=== PATIENT | female | born 1940 | race Caucasian/White ===

== ENCOUNTER 2018-06-19 06:08 | Inpatient (IN) | payer MEDICARE, OTHER, SELFPAY ==
[2018-06-05 10:28] VITALS: BMI 26.2
[2018-06-19] VITALS (15 sets, daily range): BP systolic 108–146; BP diastolic 50–72; PULSE 90–110; RESP 10–21; TEMP 35.8–36.7; O2SAT 94–99; BMI 26.2
--- NOTE | 2018-06-19 | DI.RAD.S_ITS ---
PROCEDURE: XR LUMBAR SPINE 2-3V INDICATIONS: L4-5, L5-S1 XLIF TECHNIQUE: 2 intraoperative fluoroscopic views of the lumbar spine were acquired. COMPARISON: None. FINDINGS: Intraoperative fluoroscopic images of lower lumbar spine shows transpedicular fusion at L4-S1 levels with intervertebral spacer placement at L4-5 and L5-S1 levels. Alignment of visualized portion of lumbar spine is anatomic. IMPRESSION: Fluoroscopy guidance was provided intraoperatively for transpedicular fusion at L4-S1 levels. Dictated by: Eliezer Hernandez M.D. on 06/19/2018 at 12:09 Approved by: Eliezer Hernandez M.D. on 06/19/2018 at 12:10
[2018-06-19] MEDS: LACTATED RINGERS 1,000 ML 42 ML IV (06:45)
--- NOTE | 2018-06-19 07:14 | PM.PREOP ---
Pre-operative Note Interval Note History & Physical reviewed/Exam performed by Physician: Yes Changes to H&P: No
--- NOTE | 2018-06-19 07:43 | P.OP_ITS ---
Operative Date/Time/Diagnoses Date of procedure: 06/19/18 Time of procedure: 11:24 Pre-op diagnosis: lumbar stenosis with radiculopathy Lumbar spondylolisthesis Post-op diagnosis: same Procedure & Clinicians Procedure: L45, L5S1 TLIF (post/post interbody fusion) with cages L4, L5, S1 screws icbg aspirate L45, L5S1 laminectomies microscope placement of epidural catheter Same procedure as scheduled: Yes Indications: [age] year old female with intractable pain from stenosis. They had failed conservative management and requested operative intervention. Risks and benefits of surgery were discussed and appropriate consents were obtained. Surgeon: Pan Napoles Galley Worker: Gail Lopez Anesthesia Type: General Operative Notes Findings: none Closure Type: primary Specimen(s): none sent Prosthetic devices, grafts, tissues, transplants, or devices: NuVasive MAS Reline screws Globus Rise cage Applied: catheter Estimated Blood Loss (mL): 50 Blood products transfused: none Procedure in detail: The patient was brought to the operating room and intubated on the table. A time-out was performed. They were then rolled over to the well- padded Jimmy table in the prone position. Preoperative antibiotics were given. The back was prepped and draped in the standard sterile fashion. Using fluoroscopy, a 4 cm longitudinal incision was made to the right of the midline. We used Bovie to come down to and split the lumbodorsal fascia. Using fluoroscopy and monitoring, we then percutaneously placed Jamshidi needles down the pedicles of L4, L5, and S1 on the right side. These were changed out to guidewires and then we tapped and then placed the NuVasive MAS Reline screw shanks. We then opened up the retractors and used Bovie to clear up the posterolateral gutter as well as medially along the lamina to the spinous processes. A bur was used to decorticate the transverse processes. We brought in the microscope. Using a combination of bur and Kerrison rongeurs, a laminectomy was performed from the right side at L5-S1. We cleared over past the midline and carefully depressed the dura until we were able to decompress the opposite side. We cleared out the neural foramen with a partial facetectomy. This completed the laminectomy at L5-S1. We then began the TLIF prep. A complete facetectomy was performed on this side at L5-S1. We carefully cleaned up the remainder of the foramen until we could easily retract the exiting root as well as clearing medially below the dura and expose the disc space. The disc was prepped with bipolar and then an annulotomy was performed. We performed a diskectomy using a combination of paddles, layla, pituitaries, and curettes. We distracted the disc using a paddle and locked the retractor in an open position. We then filled the disc space with Osteocell bone graft. We then placed the globus Rise cage under fluoroscopy and then filled this in with more bone graft. The distraction on the retractor was released to compress down. This completed the posterior interbody fusion portion of the TLIF at L5-S1. We then worked our way up to L4-5. We again cleared out the gutter and decorticated the transverse process. We cleared medially. We used combination of bur and Kerrisons to perform a complete laminectomy at L4-5. The this was separate and distinct from a TLIF approach as she had severe central stenosis at this level requiring careful work around the dura and extensive decompression. We then began the interbody work. A facetectomy was performed. We carefully retracted the dura and prepped the disc with bipolar. Complete diskectomy was performed with scalpel, pituitaries, Kerrisons, curettes, paddles, and Layla. We packed the disc space with bone graft and then placed a globus Rise cage and expanded under fluoroscopy. More bone graft was placed. This completed the posterior interbody portion of the L4-5 TLIF. We then placed the screw heads, sim, and locked down the set screws. The wound was copiously irrigated. A small stab incision was made over the PSIS. We used a Jamshidi needle to aspirate several mL of bone marrow from the pelvis. This was mixed with the remaining Osteocell and combined with all of the locally harvested bone graft and placed in the posterolateral gutter for the posterior fusion of the TLIF at L4-5 and L5-S1. An epidural catheter was then placed in the spinal canal by carefully depressing the dura and advancing it 6 cm cephalad under the remaining lamina without resistance. The muscle fascia was closed. The catheter was then injected with a solution containing 4 mL of 0.5% Marcaine, 1 mg Stadol, 4 mg Duramorph, and 100 mcg of fentanyl. This was injected without resistance and the catheter was pulled. We then went to the opposite side. Again using fluoroscopy, a 3 cm incision was made and Bovie was used to come down to split the fascia. Using neural monitoring and fluoroscopy, Jamshidi needles were advanced down the pedicles of L4, L5, and S1 on the left side. These were switched over guidewires, tapped, and screws placed. We then placed a sim and locked the set screws on this side. The wound was irrigated. The fascia was closed. Vancomycin powder was placed in the wounds. The superficial and skin were closed. A sterile dressing was placed. The patient was then rolled over extubated and brought to recovery room without complications. Complications: none Condition: stable Disposition: PACU Plan for aftercare: Inpatient. Up with therapy.
[2018-06-19] MEDS: CEFAZOLIN 2 GM/100 ML FROZ.PIGGY IV ×2 (07:50→19:13)
--- NOTE | 2018-06-19 08:35 | SUR.OPER ---
Prone on spine table, head in foam head support, padded chest and pelvic supports, gel pad at knees, lower legs supported by pillows; nipples, genitalia and toes free of pressure, arms secured on foam padded arm boards at <90 degrees abduction. Tape over blanket at thigh secured to table.
[2018-06-19] MEDS: VANCOMYCIN 1,000 MG VIAL 1000 MG TOP (08:54)
[2018-06-19] MEDS: THROMBIN (BOVINE) 5,000 UNIT VIAL 5000 UNIT TOP (08:54)
[2018-06-19] MEDS: SODIUM CHLORIDE 0.9% 1,000 ML, GENTAMICIN 80 MG IRR (09:02)
[2018-06-19] MEDS: LACTATED RINGERS 1,000 ML 100 ML IV (09:06)
[2018-06-19] MEDS: BUPIVACAINE 0.5% (PF) 4 ML, MORPHINE-PF 4 MG, BUTORPHANOL 1 MG, fentaNYL 100 MCG INJ (10:59)
[2018-06-19] MEDS: HYDROMORPHONE 2 MG INJ 0.25 MG IV ×4 (11:58→12:20)
[2018-06-19] MEDS: hydrOXYzine 50 MG/ML INJ 25 MG IM (12:15)
--- NOTE | 2018-06-19 12:23 | SUR.PHASEI ---
Report to Melly
--- NOTE | 2018-06-19 12:34 | SUR.PHASEI ---
assumed care of pt, pt rates pain 9/10 despite meds given. eyes are closed, face relaxed and pt able to rest between care.
--- NOTE | 2018-06-19 13:03 | SUR.PHASEI ---
pt transfered up to room and left in stable condition.
[2018-06-19] MEDS: HYDROMORPHONE 1 MG INJ 0.5 MG IV (14:51)
[2018-06-19] MEDS: LACTATED RINGERS 1,000 ML 125 ML IV ×2 (14:51→21:59)
--- NOTE | 2018-06-19 15:24 | PC.NURSE ---
Day Shift- Report rec'd from AMCHO Pickard in PACU at 1238. Pt arrived to unit room 206 at 1255 via bed. Repositioned onto left side using KOMAL bed tilt and pillow support. Lower back dressing intact with small bloody drainage to Steri-strips. HR 107bpm, O2 sat 96% on 2L NC, on continuous O2 monitoring. Pt drowsy, able to answer questions and closes eyes when responding. Family at bedside and oriented to call light and post op routines. High fall risk precautions in place, bed alarm on.
[2018-06-19] MEDS: HYDROCODONE/ACET 5/325 TABLET 2 TAB PO (19:12)
[2018-06-19] MEDS: FISH OIL 1,000 MG CAPSULE 1000 MG PO (19:14)
[2018-06-19] MEDS: CELECOXIB 200 MG CAPSULE PO (19:14)
[2018-06-19] MEDS: GABAPENTIN 300 MG CAPSULE PO (19:15)
[2018-06-19] MEDS: DOCUSATE 100 MG CAPSULE PO (19:15)
[2018-06-19] MEDS: SENNOSIDES 8.6 MG TABLET 17.2 MG PO (19:15)
--- NOTE | 2018-06-19 21:26 | PC.NURSE ---
josselin shift- assumed care of pt from outgoing shift at 1500 this day. Pt asleep at this time. arouses to voice. in room , also asleep at bedside. Pt uses call hunt. scd zeferino feet on. pt calls appropriately. Pt belongings and call light within reach. pt up and cooperative with josselin med pass. pt complains of pain. hadn't had pain meds for a while. given per MAY. and ice packs applied. repositioned multiple times to side lying. will continue to monitor pt for safety.
[2018-06-20] VITALS (8 sets, daily range): BP systolic 102–134; BP diastolic 38–62; PULSE 68–88; RESP 16–18; TEMP 36.6–37; O2SAT 93–100
[2018-06-20] MEDS: CEFAZOLIN 2 GM/100 ML FROZ.PIGGY IV (01:34)
--- NOTE | 2018-06-20 02:56 | PC.NURSE ---
Addendum entered by Shanika Beltran R.N. 06/20/18 06:00: Slept most of night. Continues to deny having pain. Spouse present in room entire shift. Original Note: 0145 Patient assessed; has been asleep since start of shift. Patient is alert and oriented. Breath sounds diminished but CTA with RA sat of 97%. HRR. Denies nausea. BT hypoactive; denies flatus. Indwelling catheter is patent with clear keaton urine. Dressing to back is CDI; steri strips to right lower edge of dressing with sanguinous drainage. Denies pain. Able to turn self in bed. Has not yet been out of bed since return from surgery. Wearing bilateral foot SCD's. CMS is intact. Fall risk score is moderate; bed alarm is activated.
[2018-06-20 06:27] LABS: Hemoglobin 10.8 g/dL (12.0-16.0)
[2018-06-20] MEDS: LACTATED RINGERS 1,000 ML 125 ML IV (06:30)
--- NOTE | 2018-06-20 07:51 | PM.PNPO.1 ---
Subjective Date Patient Seen: 06/20/18 Time Patient Seen: 07:51 Interval history: She is doing very well. She has some ache in her back but that is it. Exam Vital Signs (past 8 hours): - 06/20/18 01:35 06/20/18 06:09 Temperature 98.6 F 97.9 F Pulse Rate 87 82 Respiratory Rate 16 16 Blood Pressure 109/43 L 102/38 L Pulse Oximetry 97 100 Oxygen Delivery Method Room Air Oxygen Flow Rate 0 Const Orientation: alert and oriented x3 Back/Spine/Pelvis Other: Minimal dry drainage. 5/5 motor both lower extremities Objective Labs Result Diagrams: 06/20/18 05:57 Labs: Laboratory Results - last 24 hr 06/20/18 05:57 Hgb 10.8 L Hct 32.0 L Assessment & Plan Post-op Postoperative Procedures Operation Date: 06/19/18 07:45 Actual Procedures Side Surgeon p L4-5, L5S1 Laminectomy & Instrument Posterior fusion with bone graft Pan Napoles MD She is doing great. Mobilize with physical therapy. Anticipate discharge in the next 1-2 days. Quality VTE Deep Vein Thrombosis/Pulmonary Embolism Present on Admission: No
--- NOTE | 2018-06-20 10:40 | PC.NURSE ---
Addendum entered by Alycia Alejandre R.N. 06/20/18 14:45: Henley given for pain control. Up walking in morrow with PT. Original Note: Am shift Pt is up with Pt, feeling well. Pain has been well controlled so far. Moving all ext well. Family into visit, Pt expresses desire to d/c home as soon as able. Lungs clear, 99% RA, no nausea. IVF infusing. Call light in reach.
[2018-06-20] MEDS: ASCORBIC ACID 500 MG TABLET PO (10:43)
[2018-06-20] MEDS: AMLODIPINE 5 MG TABLET PO (10:43)
[2018-06-20] MEDS: ASPIRIN EC 81 MG TABLET PO (10:44)
[2018-06-20] MEDS: CHOLECALCIFEROL (VITAMIN D3) 5,000 UNIT TABLET 5000 UNIT PO (10:44)
[2018-06-20] MEDS: FISH OIL 1,000 MG CAPSULE 1000 MG PO ×3 (10:45→21:40)
[2018-06-20] MEDS: HYDROCODONE/ACET 5/325 TABLET 1 TAB PO ×3 (10:45→18:59)
[2018-06-20] MEDS: CELECOXIB 200 MG CAPSULE PO ×2 (10:45→21:41)
[2018-06-20] MEDS: DOCUSATE 100 MG CAPSULE PO ×2 (10:45→21:40)
[2018-06-20] MEDS: TRIAMTERENE/HCTZ 37.5/25 TABLET 1 CAP PO (10:46)
--- NOTE | 2018-06-20 11:24 | PT.IIE ---
Current Diagnoses Spondylolisthesis, lumbar region (06/19/18) Spinal stenosis, lumbar region with neurogenic claudication (06/19/18) Surgery Performed Operation Date: 06/19/18 07:45 Actual Procedures p L4-5, L5S1 Laminectomy & Instrument Posterior fusion with bone graft - Pan Napoles MD Surgical History (Last Updated 06/05/18 @ 10:47 by Keesha Dhillon RN) History of bilateral carpal tunnel release (Acute) Hx of arthroscopy of right knee (Acute) Hx of cholecystectomy (Acute 04/11/18) Hx of dilation and curettage (Acute) Hx of tonsillectomy (Acute) Status post bilateral cataract extraction (Acute) Hx of appendectomy (Resolved 1974) Status post delivery (1968) Medical History (Last Updated 06/05/18 @ 10:47 by Keesha Dhillon RN) Eustachian tube dysfunction (Chronic) Essential hypertension (Chronic 04/01/16) Pure hypercholesterolemia (Chronic 04/01/16) Rheumatoid arthritis (Chronic 04/11/16) Chronic obstructive pulmonary disease (Chronic 05/20/16) Restrictive lung disease (Chronic 04/05/17) Anxiety (Acute) Back pain (Acute) Bowel obstruction (Acute) Numbness and tingling (Acute) Pneumonia (Acute ~06/2017) Sciatica (Acute) Osteopenia (Acute) Colon obstruction (Resolved 1974) Physical Therapy Inpatient Evaluation/Re-Eval M1 PT/OT-IP Prior Functional Status Start: 06/20/18 11:04 Freq: NEEDED Status: Active Protocol: Document 06/20/18 10:15 (Rec: 06/20/18 11:24 [email or web address]) Medical Review Prior Functional Status Medical History Reviewed Yes Diet/Fluid Consistency Regular Communication No deficits noted. Able to make needs known. Mobility and Gait Pt was an independent ambulator at home and community without using AD. Able to do gardening, grocery shop independently. Pt said she uses shower chair for bathing. Activities of Daily Living and IADL's Pt was independent with ADLs and IADLs without AD. Social History Household Members spouse children Living Arrangements House Number of Floors (Floors) Two Floors Number of Stairs To Enter/Railing? 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 Pt's bedroom and bathroom are both on second floor. Pt has 4 children and 27 grand kids that live close by. One of pt's dtr will stay with pt temporarily to assist as needed. Pt's is independent for ADLs and IADLs but does have difficulty getting up from low chair. M2 PT-IP Current Condition Start: 06/20/18 11:04 Freq: NEEDED Status: Active Protocol: Document 06/20/18 10:15 HH (Rec: 06/20/18 11:24 [email or web address]) Physical Therapy Current Condition Current Condition Evaluation Date 06/20/18 Treatment Diagnosis L4-S1 TLIF, impaired gait and activity tolerance Onset Date 06/19/18 Precautions Lumbar Precautions Log Roll No Twisting Limit Bending Lifting Restriction of 10 lbs Gait Belt above Incisional Area Weight Bearing Status Weight Bearing Status Weight Bear as Tolerated M3 PT-IP Subjective Start: 06/20/18 11:04 Freq: NEEDED Status: Active Protocol: Document 06/20/18 10:15 HH (Rec: 06/20/18 11:24 [email or web address]) Subjective Physical Therapy Visit Type Type Initial Evaluation Visit Start Time 10:15 Visit Stop Time 10:45 Total Visit Minutes 30 Notes Pt's , dtrs and grand kids at bedside. Number of CLINICAL TRIAL MANAGER Visits 0 Physical Therapy Visit Comments Patient Comments I only feel a little bit sore at my back only. Patient Goals To return home with her Therapy Pain Assessment Pain When Pain Assessed During Mobility Pain Present Pain Present Pain Reported Location Back Intensity 3 Scale Used Numeric (1 - 10) Description Acute Pain Behaviors Facial Grimacing Pain Management Techniques Modification of Treatment Re-positioning Timing of Activity with Medications M4 PT-IP Mobility and Gait Start: 06/20/18 11:04 Freq: NEEDED Status: Active Protocol: Document 06/20/18 10:15 HH (Rec: 06/20/18 11:24 [email or web address]) PT-Bed Mobility Assessment Rolling Type of Rolling Roll to Left Level of Assist Contact Guard Assistance Supine to Sit Supine to Sit Contact Guard Assistance Scooting Scooting to Edge of Bed Standby Assistance PT-Transfer Assessment Sit to and From Stand Sit to and from Stand Minimal Assistance Use of Upper Extremities Equipment Transfer Assistive Device Gait Belt Front Wheeled Walker Orthotic/Prosthetic Devices or Brace: No Transfers Transfer Destination Bed Chair Transfer Technique Stand Step Pivot Transfer Ability Level of Assist Contact Guard Assistance Minimal Assistance Use of Upper Extremities Comments Mobility Comments Pt was in bed upon assessment. Instructed pt's precautions and log roll method. Pt then log roll to left and used side push up to sit up EOB with CGA. she then stood up with min A FWW. Needed cues to keep her feet underneath her knees . She was also able to transfer herself to bedside chair with proper hand placements on armrests. Gait Assessment Gait Gait Assistance Required: Contact Guard Assist Distance (Feet) 80 Able to Maintain Weight Bearing Status Yes During Gait Assistive Devices Assistive Device Gait Belt Front Wheeled Walker Orthotic/Prosthetic Devices or Brace: No Gait Deviations General Gait Pattern Decreased Stride Length Decreased Feet Clearance Step-to Gait Factors Limiting Gait Function Factors Limiting Gait Function Decreased Activity Tolerance Decreased Sensation Decreased Strength Limited Range of Motion Pain Comments Gait Comments Pt up and amb in the hallway with FWW CGA. Pt used step to gait and decreased feet clearance and stride length. Required cues to facilitate upright position. Pt reports fatigue afterwards. Stair Climbing Assessment Evaluation Level of Assist On Stairs Contact Guard Assistance Devices Stair Climbing Assistive Devices Left Railing Right Railing Technique/Endurance Stair Climbing Direction Ascend and Descend Stair Climbing Technique Step to Step Number of Steps Climbed 3 Query Text: Stair Climbing Set # Repetitions (reps) 1 Comments Stair Climbing Comments slow but steady. PT-Balance Assessment Sitting Balance and Reactions Static Sitting Balance Ability Normal Dynamic Sitting Balance Ability Normal Standing Balance and Reactions Static Standing Balance Ability Good Dynamic Standing Balance Ability Good Device Used FWW M5 PT-IP Objective Assessments Start: 06/20/18 11:04 Freq: NEEDED Status: Active Protocol: Document 06/20/18 10:15 (Rec: 06/20/18 11:24 [email or web address]) Orientation Orientation/Cognition Level of Alertness Alert Orientation Name Age Birthday Month Date Year Day of Week Place Situation Language Function Ability No Deficits Noted Safety Awareness Understands Safety Issues Memory Description No Deficits Noted Gross Range of Motion Upper Extremity ROM Assessment Within Functional Limits Lower Extremity ROM Assessment Within Functional Limits Strength Upper Extremity Strength Assessment Within Functional Limits Lower Extremity Strength Assessment Bilaterally Impaired Comments Strength Comments B LEs strength 4-/5 Coordination Assessment Gross Coordination Gross Coordination WNL Assessment Finger to Nose Test Normal Performance Pronation/Supination Test Normal Performance Sensation Assessment Sensation Gross Sensation WNL Light Touch Intact Proprioception (Position) Intact Muscle Tone Muscle Tone WNL Yes M6 PT-IP Treatment Start: 06/20/18 11:04 Freq: NEEDED Status: Active Protocol: Document 06/20/18 10:15 HH (Rec: 06/20/18 11:24 HH [email or web address]) Physical Therapy Treatment Education Education Provided Precautions Weight Bearing Status Post-Op Packet Safety M7 PT-IP Assessment and Plan Start: 06/20/18 11:04 Freq: NEEDED Status: Active Protocol: Document 06/20/18 10:15 HH (Rec: 06/20/18 11:24 HH [email or web address]) PT Summary Assessment and Plan Potential Rehabilitation Potential Excellent Status of Condition at Evaluation Stable Summary Impairments Pain ROM Strength Balance Bed Mobility Transfers Gait Activity Tolerance Assessment Summary Pt is low complexity POD #2 L4 -S1 TLIF due to chronic back pain. Pt was up and ambulating for approx 80 feet FWW CGA but considerably slow due to pain and movement restrictions . Pt was able to recall 3/3 precautions and safely demonstrate log roll supine to sit with CGA. Pt did 3 steps with B railings CGA as well. However, pt has 3STE the house with L railing ,and 6-7 steps to second level with L railing. Pt is expected to d/c home once she is medically stable but she is required to clear stair training in hospital prior to d/c home safely. Goals Bed Mobility Goal Independent Transfer Goal Independent Front Wheeled Walker Gait Goal Independent Front Wheel Walker Gait Distance 150 Other Goals stair climbing 10 steps with L railing Days to Meet Goals 5 Frequency of Treatment Frequency Of Treatment Twice a Day Treatment Plan Physical Therapy Treatment Plan Bed Mobility Training Transfer Training Gait Training Therapeutic Exercise Balance Retraining Post Op Education Discharge Planning Hot or Cold Pack Other Recommendations and Next Treatment review precautions Focus log roll, transfers and gait training as virgil stair climbing with L railing adjust pt's personal FWW and SPC Recommendations To Nursing Amount of Assist Needed 1 Person Assist Discharge Recommendations PT Discharge Recommendations Home with Assistance Equipment Needed for Home Before tub transfer bench Discharge
--- NOTE | 2018-06-20 12:00 | OT.IP.EVAL ---
Current Diagnoses Spondylolisthesis, lumbar region (06/19/18) Spinal stenosis, lumbar region with neurogenic claudication (06/19/18) Surgery Performed Operation Date: 06/19/18 07:45 Actual Procedures p L4-5, L5S1 Laminectomy & Instrument Posterior fusion with bone graft - Pan Napoles MD Past Medical History (Last Updated 06/05/18 @ 10:47 by Keesha Dhillon RN) Eustachian tube dysfunction (Chronic) Essential hypertension (Chronic 04/01/16) Pure hypercholesterolemia (Chronic 04/01/16) Rheumatoid arthritis (Chronic 04/11/16) Chronic obstructive pulmonary disease (Chronic 05/20/16) Restrictive lung disease (Chronic 04/05/17) Anxiety (Acute) Back pain (Acute) Bowel obstruction (Acute) Numbness and tingling (Acute) Pneumonia (Acute ~06/2017) Sciatica (Acute) Osteopenia (Acute) Colon obstruction (Resolved 1974) Surgical History (Last Updated 06/05/18 @ 10:47 by Keesha Dhillon RN) History of bilateral carpal tunnel release (Acute) Hx of arthroscopy of right knee (Acute) Hx of cholecystectomy (Acute 04/11/18) Hx of dilation and curettage (Acute) Hx of tonsillectomy (Acute) Status post bilateral cataract extraction (Acute) Hx of appendectomy (Resolved 1974) Status post delivery (1968) Occupational Therapy Inpatient Evaluation/Re-Eval M1 PT/OT-IP Prior Functional Status Start: 06/20/18 11:28 Freq: NEEDED Status: Active Protocol: Document 06/20/18 11:36 [facility] (Rec: 06/20/18 12:00 [facility] [id number]) Medical Review Prior Functional Status Medical History Reviewed Yes Diet/Fluid Consistency Regular Communication No deficits noted. Able to make needs known. Mobility and Gait Pt was an independent ambulator at home and community without using AD. Able to do gardening, grocery shop independently. Pt said she uses shower chair for bathing. Activities of Daily Living and IADL's Pt was independent with ADLs and IADLs without AD. Social History Household Members spouse children Living Arrangements House Number of Floors (Floors) Two Floors Number of Stairs To Enter/Railing? 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 Pt's bedroom and bathroom are both on second floor. Pt has 4 children and 27 grand kids that live close by. One of pt's dtr will stay with pt temporarily to assist as needed. Pt's is independent for ADLs and IADLs but does have difficulty getting up from low chair. M2 OT-IP Current Condition Start: 06/20/18 11:28 Freq: Status: Active Protocol: Document 06/20/18 11:36 [facility] (Rec: 06/20/18 12:00 [facility] [id number]) Occupational Therapy Current Condition Current Condition Evaluation Date 06/20/18 Treatment Diagnosis Lumbar stenosis s/p L4-5, L5- S1, laminectomy and TLIF with bone graft Diagnosis Onset Date 1125 Post Operative Precautions Lumbar Precautions Log Roll No Twisting Limit Bending Lifting Restriction of 10 lbs Gait Belt above Incisional Area M3 OT- IP Subjective and Pain Start: 06/20/18 11:28 Freq: Status: Active Protocol: Document 06/20/18 11:36 [facility] (Rec: 06/20/18 12:00 [facility] [id number]) OT- Subjective Occupational Therapy Visit Type Type Initial Evaluation Visit Start Time 11:10 Visit Stop Time 11:25 Total Visit Minutes 15 Occupational Therapy Visit Comments Patient Comments Pt states very tired and wanting to get back to the bed . Patient/Caregiver Goals To go home. OT Pain Assessment Pain When Pain Assessed At Rest Pain Present Pain Present Denied Pain M4 OT- IP ADL's Start: 06/20/18 11:28 Freq: Status: Active Protocol: Document 06/20/18 11:36 [facility] (Rec: 06/20/18 12:00 [facility] [id number]) OT ADL-Dressing General Eval Lower Body Dressing Ability Maximum Assistance Comments OT Dressing Comments MAX due to back precautions for LB dressing. Pt states does not have any LB AED and that family will be able to assist her. OT ADL-Toileting Comments OT Toileting Comments Pt has catheter in. Pt states bathroom is 20 ft away and can use BSC next to bed if needed . Pt states can wear pads at night if needed. Educated to stand for wiping and that if having may need to look into toilet aid pending if pt able to appropriately able to reach back with incorporation of back precautions. OT ADL-Bathing Comments OT Bathing Comments Pt wanting to try to shower tomorrow. Pt has a shower chair and steps into the tub/ shower with sliding glass doors mainly by holding to the top of shower frame. Pt statets family to be there to assist. M5 OT- IP IADL's Start: 06/20/18 11:28 Freq: Status: Active Protocol: Document 06/20/18 11:36 [facility] (Rec: 06/20/18 12:00 [facility] [id number]) OT-Instrumental Activities of Daily Living Home Safety Awareness Home Safety Comments Pt's family to assist with all ADl and IADl needs. M6 OT- IP Functional Cognition Start: 06/20/18 11:28 Freq: Status: Active Protocol: Document 06/20/18 11:36 [facility] (Rec: 06/20/18 12:00 [facility] [id number]) Cognitive Factors Limiting Selfcare Function Cognitive Ability Level of Alertness Alert Patient Orientation Name Place Situation Attention Span Ability Capable of Focused Attention Capable of Sustained Attention Ability to Follow Commands Able to Follow One Step Commands Memory Description Short Term Impaired Safety Awareness Decreased Ability to Apply Precautions Cognitive Comments Cognitive Assessment Comments Pt not able to recall all back precaution 2/3. More training to be done tomorrow as pt just wanting to rest. OT- Vision and Hearing OT- Hearing Assessment OT- Hearing Assessment WFL M7 OT- IP Mobility and Balance Start: 06/20/18 11:28 Freq: Status: Active Protocol: Document 06/20/18 11:36 [facility] (Rec: 06/20/18 12:00 [facility] [id number]) OT- Bed Mobility Assessment Sit to Supine Sit to Supine Assist Minimal Assistance OT-Transfer Assessment Sit to and From Stand Sit to and from Stand Moderate Assistance 1 Person Assistance Transfers Transfer Ability Standby Assistance Technique Transfer Destination Bed Devices Transfer Assistive Devices Gait Belt Front Wheeled Walker Comments Mobility Comments Pt needing MODA to stand from recliner, vc to try to bend at hips so able to get weight over her legs to stand. Once standing SBA with FWW and YO to help get legs back into bed. Pt requesting to stay on her side , pillows ice pack, and call light placed. OT- Balance Assessment Sitting Balance and Reactions Static Sitting Balance Ability Normal Standing Balance and Reactions Static Standing Balance Ability Good M8 OT- IP Objective Assessments Start: 06/20/18 11:28 Freq: Status: Active Protocol: Document 06/20/18 11:36 [facility] (Rec: 06/20/18 12:00 [facility] [id number]) OT Gross Range of Motion Upper Extremity Range of Motion Assessment Within Functional Limits OT Strength Comments Strength Comments WFL for transfer and bed mobility needs. M9 OT- IP Assessment and Plan Start: 06/20/18 11:28 Freq: Status: Active Protocol: Document 06/20/18 11:36 [facility] (Rec: 06/20/18 12:00 [facility] [id number]) OT Summary Assessment and Plan Potential Rehabilitation Potential Good Analytic Complexity at Evaluation Low Summary OT Impairments Pain Functional Cognition Functional Mobility Dressing Toileting Bathing Toilet Transfers Shower Transfers Progress Towards Goals Slow Progress due to Pain Slow Progress due to Activity Tolerance Assessment Summary Pt low complexity and main barriers are steps, activity tolerance, and a little groggy and not able to recall all back precautions at this time. Pt will benefit from caregiver training with family prior to going home. Goals Grooming Goal Standby Assistance Dressing Goal Standby Assistance Toileting Goal Standby Assistance Bathing Goal Minimal Assistance Toilet Transfer Goal Standby Assistance Shower Transfer Goal Contact Guard Assistance Patient/Caregiver Education Goal Demonstrate Post-Op Precautions Caregiver Independent Assisting Patient Days to Meet Goals 3 Frequency of Treatment Frequency Of Treatment Once a Day Treatment Plan OT Treatment Plan ADL Training Functional Cognition Training Functional Mobility Patient/Family Education Discharge Planning Other Treatment Recommendations and Next shower, practice AED if pt Treatment Focus wanting it, caregiver training Discharge Recommendations OT Discharge Recommendations Home with Assistance Home Equipment Needs possible tub bench, toilet aid pending how pt does.
--- NOTE | 2018-06-20 14:49 | PT.IPTN ---
Current Diagnoses Spondylolisthesis, lumbar region (06/19/18) Spinal stenosis, lumbar region with neurogenic claudication (06/19/18) Surgery Performed Operation Date: 06/19/18 07:45 Actual Procedures p L4-5, L5S1 Laminectomy & Instrument Posterior fusion with bone graft - Pan Napoles MD Physical Therapy Treatment Note M2 PT-IP Current Condition Start: 06/20/18 11:04 Freq: NEEDED Status: Active Protocol: Document 06/20/18 10:15 (Rec: 06/20/18 11:24 [id number]) Physical Therapy Current Condition Current Condition Evaluation Date 06/20/18 Treatment Diagnosis L4-S1 TLIF, impaired gait and activity tolerance Onset Date 06/19/18 Precautions Lumbar Precautions Log Roll No Twisting Limit Bending Lifting Restriction of 10 lbs Gait Belt above Incisional Area Weight Bearing Status Weight Bearing Status Weight Bear as Tolerated M3 PT-IP Subjective Start: 06/20/18 11:04 Freq: NEEDED Status: Active Protocol: Document 06/20/18 14:29 SA (Rec: 06/20/18 14:49 SA [id number]) Subjective Physical Therapy Visit Type Type Treatment Note Visit Start Time 13:47 Visit Stop Time 14:16 Total Visit Minutes 29 Notes Pt with family present in room , agreeable to walk. 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 Patient Goals To return home with her and family. Therapy Pain Assessment Pain When Pain Assessed During Mobility Pain Present Pain Present Pain Reported Location Back Intensity 2 Scale Used Numeric (1 - 10) Description Acute Pain Behaviors Facial Grimacing Pain Management Techniques Modification of Treatment Re-positioning Timing of Activity with Medications M4 PT-IP Mobility and Gait Start: 06/20/18 11:04 Freq: NEEDED Status: Active Protocol: Document 06/20/18 14:29 SA (Rec: 06/20/18 14:49 SA [id number]) PT-Bed Mobility Assessment Rolling Type of Rolling Roll to Left Level of Assist Standby Assistance Supine to Sit Supine to Sit Standby Assistance Scooting Scooting to Edge of Bed Standby Assistance Scooting Up and Down in Bed Standby Assistance PT-Transfer Assessment Sit to and From Stand Sit to and from Stand Contact Guard Assistance Use of Upper Extremities Equipment Transfer Assistive Device Gait Belt Front Wheeled Walker Orthotic/Prosthetic Devices or Brace: No Transfers Transfer Destination Bed Chair Transfer Technique Stand Step Pivot Transfer Ability Level of Assist Contact Guard Assistance Use of Upper Extremities Comments Mobility Comments Pt able to perform log roll to L side with min cues and SBA. CGA with transfers and sit to stands. Pt receptive to cues and understands precautions. Gait Assessment Gait Gait Assistance Required: Contact Guard Assist Distance (Feet) 120 Able to Maintain Weight Bearing Status Yes During Gait Assistive Devices Assistive Device Gait Belt Front Wheeled Walker Orthotic/Prosthetic Devices or Brace: No Gait Deviations General Gait Pattern Decreased Stride Length Decreased Feet Clearance Step-to Gait Factors Limiting Gait Function Factors Limiting Gait Function Decreased Activity Tolerance Decreased Sensation Decreased Strength Limited Range of Motion Pain Comments Gait Comments Gait training in halls with FWW and CGA for 120 feet with cues for increasing step length and upright posture. Pt manages FWW well, no LOB. Stair Climbing Assessment Evaluation Level of Assist On Stairs Contact Guard Assistance Devices Stair Climbing Assistive Devices Left Railing Right Railing Technique/Endurance Stair Climbing Direction Ascend and Descend Stair Climbing Technique Step to Step Number of Steps Climbed 3 Query Text: Stair Climbing Set # Repetitions (reps) 2 Comments Stair Climbing Comments Up/Down 6 steps in a row with B rails and CGA, cues for safe technique. Pt demonstrates good safety awareness and pacing. PT-Balance Assessment Sitting Balance and Reactions Static Sitting Balance Ability Normal Dynamic Sitting Balance Ability Normal M5 PT-IP Objective Assessments Start: 06/20/18 11:04 Freq: NEEDED Status: Active Protocol: Document 06/20/18 10:15 (Rec: 06/20/18 11:24 [id number]) Orientation Orientation/Cognition Level of Alertness Alert Orientation Name Age Birthday Month Date Year Day of Week Place Situation Language Function Ability No Deficits Noted Safety Awareness Understands Safety Issues Memory Description No Deficits Noted Gross Range of Motion Upper Extremity ROM Assessment Within Functional Limits Lower Extremity ROM Assessment Within Functional Limits Strength Upper Extremity Strength Assessment Within Functional Limits Lower Extremity Strength Assessment Bilaterally Impaired Comments Strength Comments B LEs strength 4-/5 Coordination Assessment Gross Coordination Gross Coordination WNL Assessment Finger to Nose Test Normal Performance Pronation/Supination Test Normal Performance Sensation Assessment Sensation Gross Sensation WNL Light Touch Intact Proprioception (Position) Intact Muscle Tone Muscle Tone WNL Yes M6 PT-IP Treatment Start: 06/20/18 11:04 Freq: NEEDED Status: Active Protocol: Document 06/20/18 14:29 SA (Rec: 06/20/18 14:49 [id number]) Physical Therapy Treatment Exercises Exercises Ankle Pumps Gluteal Sets Education Education Provided Precautions Weight Bearing Status Post-Op Packet Safety Other Treatments Other Treatment Performed Review of spinal precautions with mobility tasks. M7 PT-IP Assessment and Plan Start: 06/20/18 11:04 Freq: NEEDED Status: Active Protocol: Document 06/20/18 14:29 (Rec: 06/20/18 14:49 [id number]) PT Summary Assessment and Plan Potential Rehabilitation Potential Excellent Status of Condition at Evaluation Stable Summary Assessment Summary Pt progressing well with gait and stair climb, low pain levels and understands precautions. Supportive family and spouse at home. Frequency of Treatment Frequency Of Treatment Twice a Day Recommendations To Nursing Amount of Assist Needed 1 Person Assist Discharge Recommendations PT Discharge Recommendations Home with Assistance Equipment Needed for Home Before tub transfer bench Discharge
--- NOTE | 2018-06-20 15:48 | CM.DANOTE ---
Addendum entered by Tori Power LPN 06/20/18 15:55: OT note of this afternoon is noted: Pt is doing well toward her goal of home and family care. She lives with her and 20 year old grandson. One of her daughters will be staying with her after surgery for supportive assist. (and she had 4 adult children and 27 grandchildren in the area who are supportive!). Pt is noted to have been an Independent community ambulator prior to surgery...Anticipate she will do well going home but will check in as noted and follow accordingly. Original Note: Discharge Planning/Care Management DCP: assessment: case received today and discussed in Team Rounds. Pt is a 78 year old female who admitted for a planned spinal surgery yesterday: Dr. Mendes: surgeon. Payer: Medicare and [employer] [place] admission status: confirmed by UR MACHO Mcfarland. Dr. Napoles was here to see pt early this morning and noted she would be here for a couple more days and that she was making good progress toward home. PT and OT confirmed in rounds that they were both working with pt. P: check in tomorrow after pt has been working with therapy for introduction of self and role and assist with her d/c issues and options. Advanced directive, confirm from FAMILY Start: 06/19/18 13:28 Freq: Q24H Status: Active Protocol: Document 06/19/18 16:00 JK (Rec: 06/19/18 19:07 JK [id number]) Advance Directive, confirm on record Time 19:07 Person contacted Copy received No CM Discharge Assessment Start: 06/20/18 15:47 Freq: Status: Active Protocol: Document 06/20/18 15:47 ITV (Rec: 06/20/18 15:48 [email or web address] [id number]) Discharge Planning Assessment Advance Directives? Yes Advance Directives on File No History Provided By Medical Record Prior Living Arrangements House Household Members spouse children Review Status In Process Next Review Type Continued Stay Review Pre-Anesthesia Assessment Start: 06/05/18 10:28 Freq: Status: Complete Protocol: Document 06/05/18 10:28 CAB (Rec: 06/05/18 11:06 CAB [id number]) Pre-Anesthesia Assessment Patient Information Reviewed Via Phone Assessment Assessment Completed With Patient Diagnostic Results BMP/CMP CBC EKG Comment Outside labs/ECG scanned to record Primary Care Provider Nathaniel Peterson Medical Clearance Received Yes Seen Specialist in Last 12 Months Yes Specialist Seen Orthopedist Comment PCP clearance scanned to record Primary Language Palauan Preferred Language Palauan Garbage Truck Driver Required No Height 168.91 cm Weight 74.843 kg Body Mass Index (BMI) 26.2 Hearing Ability Normal Visual Assist Glasses Dentition Type Teeth, Natural Present Teeth, Missing Dental Implants Barriers to Learning None Other Aids No Hx Anesthesia Reactions No Hx Family Anesthesia Reaction No Hx Malignant Hyperthermia No Hx Blood Transfusions No Anesthesia Review Requested No Pipe Supervisor No alcohol intake current alcohol intake frequency holidays/special occasions only Smoking Status Never smoker Substance Use Type does not use Pain Present Pain Reported Musculoskeletal Symptoms Abnormal Gait Back Pain Difficulty Walking Radiating Pain into Limb History of Falling (Recent or History of No ) Patient is completely paralyzed or No completely immobile Mental Status Oriented to own ability Is patient on oxygen? No Does patient have PEGUERO/SOB Yes: r/t COPD Hx Sleep Apnea No Currently Taking a Beta Tariq No Can You Climb a Flight of Stairs Without No SOB Hx Chest Pain No Hx SOB Yes: r/t COPD Hx Syncope or Dizziness No Anti-Coagulant Therapy No Has a Inspector Packer Glass Container No Cardiac Testing No Hx Pacemaker/ICD No Pacemaker Rep Required? No Cardiac Clearance Received Not Applicable Diet Type At Home Regular dysphagia No Urinary Catheter Present No Hx Urinary Self Catheterization No Diabetes No Patient No Lactating No Hx Drug Resistant Organism No Presence of External or Internal Medical No Devices Have you traveled outside the [facility] States in the last 30 days? Comment [place] travel 05/31/18 x 1 day Marital Status Lives With spouse children Prior Living Arrangements House Number of Floors (Floors) Two Floors Support System Child/Children Spouse Does the Patient Have Assistance After Yes Surgery Patient Discharge Plan Description Return Home Comment Pt advised 2-3 day length of stay per surgeon's office Feels Safe in Current Environment Yes Been Physically Hurt or Threatened By a No Person in Current Environment Do you have thoughts of harming yourself None or others? Are you currently considering suicide? No Do you have a plan to hurt yourself or No Plan others? Do You Have Any Spiritual Beliefs That No May Affect Your HC Choices? Do You Have Any Cultural Practices That No May Affect Your HC Choices? Comment Yarsanism Who Can We Speak to About Patient's Care Family, friends Identifying Code for Release of Patient Declines to issue Information Health Care Proxy/Next of Kin Kevin () or Yajaira ( daughter) Health Care Proxy Phone Number Kevin: [phone], Yajaira: [phone] Emergency Contact Name Kevin () or Yajaira ( daughter) Emergency Contact Phone Number Kevin: [phone], Yajaira: [phone] Advance Directives? Yes Advance Directives on File No Requested Patient Bring Advanced Yes Directives DOS Power of Neurophysiology Tech Yes Power of Neurophysiology Tech Name Kevin () Power of Neurophysiology Tech PAC Instructions Durable medical equipment Medications to take/avoid Nasal antibiotic No ETOH/petroleum product on skin DOS NPO Post-op transportation Pre-surgical wash Sturdy shoes/comfortable clothes Do not bring valuables and remove jewelry
[2018-06-20] MEDS: GABAPENTIN 300 MG CAPSULE PO (21:40)
[2018-06-20] MEDS: SENNOSIDES 8.6 MG TABLET 17.2 MG PO (21:41)
[2018-06-20] MEDS: HYDROCODONE/ACET 5/325 TABLET 2 TAB PO (22:59)
--- NOTE | 2018-06-21 00:29 | PC.NURSE ---
Addendum entered by Shanika Beltran R.N. 06/21/18 06:41: Up to bathroom and voided what sounded like a good amount but patient missed measuring device so amount is unknown. States pain is 5/10 so medicated with Vicodin and ice pack applied to back. Original Note: Patient is alert and oriented. Breath sounds diminished but CTA with RA sat of 96%. HRR. Denies nausea. BT hyperactive; passing flatus. Quiroz out yesterday and has voided once, unmeasured, since; denies dysuria, frequency or urgency. Dressing to back is CDI with old sanguineous drainage on right lower steri strip. At shift change had received Vicodin and pain was then at 4/10; ice applied at this time. Able to turn self in bed. Has numbness in left lateral thigh but otherwise CMS is intact. Wearing bilateral foot SCD's. Fall risks score is moderate; bed alarm is activated.
[2018-06-21] MEDS: HYDROCODONE/ACET 5/325 TABLET 1 TAB PO ×3 (06:39→12:30)
[2018-06-21 08:05] VITALS: BP 125/60; PULSE 81; RESP 16; TEMP 36.9; O2SAT 96
[2018-06-21] MEDS: AMLODIPINE 5 MG TABLET PO (08:54)
[2018-06-21] MEDS: CELECOXIB 200 MG CAPSULE PO ×2 (08:54→20:55)
[2018-06-21] MEDS: DOCUSATE 100 MG CAPSULE PO ×2 (08:54→20:54)
[2018-06-21] MEDS: ASPIRIN EC 81 MG TABLET PO (08:54)
[2018-06-21] MEDS: TRIAMTERENE/HCTZ 37.5/25 TABLET 1 CAP PO (08:54)
[2018-06-21] MEDS: ASCORBIC ACID 500 MG TABLET PO (08:54)
[2018-06-21] MEDS: CHOLECALCIFEROL (VITAMIN D3) 5,000 UNIT TABLET 5000 UNIT PO (08:54)
[2018-06-21] MEDS: FISH OIL 1,000 MG CAPSULE 1000 MG PO ×3 (08:54→20:54)
[2018-06-21] MEDS: SODIUM CHLORIDE 0.9% FLUSH 10 ML IV ×2 (08:54→20:55)
[2018-06-21 09:13] VITALS: O2SAT 96
--- NOTE | 2018-06-21 09:21 | P.PN_ITS ---
Subjective Date Patient Seen: 06/21/18 Time Patient Seen: 09:18 Interval history: Hospital day 3, postop day 2 following L4-5, L5-S1 laminectomy, TLIF, cage, posterior screw fixation by Dr. Napoles. She does complain of some numbness to her lateral left thigh which was not present preoperatively. Still notes noticeable pain to her lower back. Taking [place] 5- 10 mg. Patient had limited physical therapy yesterday. She does and plan to go home with family helping to take care of her. She does have stairs at home. Patient feels that she would like to stay 1 more day for going home because of pain and limited function. Exam Vital Signs (past 8 hours): - 06/21/18 08:05 06/21/18 09:13 Temperature 98.4 F Pulse Rate 81 Respiratory Rate 16 Blood Pressure 125/60 Pulse Oximetry 96 96 Fraction of Inspired Oxygen 21 Oxygen Delivery Method Room Air Oxygen Flow Rate 0 Narrative Exam Narrative: Alert, oriented in no acute distress resting in bed. back. Dressing to the lumbar area is dry without drainage or inflammation. No calf pain or swelling. Pulses symmetrical. Good sensation to touch the lower legs. Good strength on foot dorsiflexion plantar flexion. decreased sensation to lateral left thigh. Objective Labs Result Diagrams: 06/20/18 05:57 Assessment & Plan Post-op Postoperative Procedures Operation Date: 06/19/18 07:45 Actual Procedures Side Surgeon p L4-5, L5S1 Laminectomy & Instrument Posterior fusion with bone graft Pan Napoles MD Plan: The patient states today and work with physical therapy more. Observe for better improvement in pain control. Anticipate discharge home tomorrow if stable. will apply CovRsite dressing to lumbar area before discharge home. Quality VTE Deep Vein Thrombosis/Pulmonary Embolism Present on Admission: No
--- NOTE | 2018-06-21 10:23 | OT.IP.TRT ---
Current Diagnoses Spondylolisthesis, lumbar region (06/19/18) Spinal stenosis, lumbar region with neurogenic claudication (06/19/18) Surgery Performed Operation Date: 06/19/18 07:45 Actual Procedures p L4-5, L5S1 Laminectomy & Instrument Posterior fusion with bone graft - Pan Napoles MD Occupational Therapy Treatment Note M2 OT-IP Current Condition Start: 06/20/18 11:28 Freq: Status: Active Protocol: Document 06/20/18 11:36 [facility] (Rec: 06/20/18 12:00 [facility] [id number]) Occupational Therapy Current Condition Current Condition Evaluation Date 06/20/18 Treatment Diagnosis Lumbar stenosis s/p L4-5, L5- S1, laminectomy and TLIF with bone graft Diagnosis Onset Date 1125 Post Operative Precautions Lumbar Precautions Log Roll No Twisting Limit Bending Lifting Restriction of 10 lbs Gait Belt above Incisional Area M3 OT- IP Subjective and Pain Start: 06/20/18 11:28 Freq: Status: Active Protocol: Document 06/21/18 10:23 [facility] (Rec: 06/21/18 10:43 PJM [id number]) OT- Subjective Occupational Therapy Visit Type Type Treatment Note Visit Start Time 09:30 Visit Stop Time 10:23 Total Visit Minutes 53 Notes here for education this session Occupational Therapy Visit Comments Patient Comments I would really like to shower, but I am not going home until tomorrow. Patient/Caregiver Goals to be steady on her feet and regain independence with ADLS at home OT Pain Assessment Pain When Pain Assessed After Treatment Pain Present Pain Present Pain Reported Location Back Intensity 5 Scale Used Numeric (1 - 10) Description Aching Acute Management Techniques Apply Cold Distraction Re-positioning Timing of Activity with Medications M4 OT- IP ADL's Start: 06/20/18 11:28 Freq: Status: Active Protocol: Document 06/21/18 10:23 PJM (Rec: 06/21/18 10:43 PJM [id number]) OT [id number]-[id number] General Evaluation Self-Feeding Ability Independent OT ADL-Grooming General Evaluation Grooming Ability Independent OT ADL-Oral Care General Eval Oral Care Ability Independent OT ADL-Dressing General Eval Upper Body Dressing Ability Independent Lower Body Dressing Ability Independent Areas Needing Assistance Retrieving/Set-up of Clothing Pull-Over Shirt Underpants/Brief Pants/Shorts Socks Assistive Devices Dressing Assistive Devices Long Handled Shoe Horn Shipping Room Supervisor Sock Aid Comments OT Dressing Comments Provided further education and practice re: use of lower body dressing equipt and pt modified indep using adaptive. Shipping Room Supervisor, sock aid and long shoe horn provided at pt request. OT ADL-Toileting General Evaluation Toileting Ability Independent Areas Needing Assistance Manage Clothing Perform Perineal Hygiene Comments OT Toileting Comments provided education re: body mechanics, no toilet paper aid needed OT ADL-Bathing Bathing Type Bathing Type Shower General Evaluation Bathing Ability Minimal Assistance Areas Needing Assistance Wash/Dry Back Devices Bathing Equipment Long Handled Sponge or [place] Shower Chair with Arms Comments OT Bathing Comments Pt needed assist only with upper back to keep bandage dry . Provided education re: body mechanics and use of long bath sponge and crabbing machine operator to assist with washing and drying . M5 OT- IP IADL's Start: 06/20/18 11:28 Freq: Status: Active Protocol: Document 06/20/18 11:36 [facility] (Rec: 06/20/18 12:00 [facility] [id number]) OT-Instrumental Activities of Daily Living Home Safety Awareness Home Safety Comments Pt's family to assist with all ADl and IADl needs. M6 OT- IP Functional Cognition Start: 06/20/18 11:28 Freq: Status: Active Protocol: Document 06/21/18 10:23 [facility] (Rec: 06/21/18 10:43 PJM [id number]) Cognitive Factors Limiting Selfcare Function Cognitive Ability Level of Alertness Alert Patient Orientation Name Attention Span Ability Capable of Focused Attention Capable of Sustained Attention Ability to Follow Commands Able to Follow One Step Commands Able to Follow Multi-Step Commands Memory Description No Deficits Noted Safety Awareness No Deficits Noted Problem Solving Ability No deficits Noted Cognitive Comments Cognitive Assessment Comments Pt verbalizes and demonstrates understanding of 3/3/ lumbar spine precautions. M7 OT- IP Mobility and Balance Start: 06/20/18 11:28 Freq: Status: Active Protocol: Document 06/21/18 10:23 PJM (Rec: 06/21/18 10:43 PJM [email or web address]) OT-Transfer Assessment Sit to and From Stand Sit to and from Stand Standby Assistance 1 Person Assistance Transfers Transfer Ability Standby Assistance Technique Transfer Destination Chair Shower Stall Transfer Technique Stand Step Pivot Devices Transfer Assistive Devices Front Wheeled Walker OT- Gait Assessment Gait Gait Assistance Required: Standby Assistance Distance (Feet) 20 Assistive Devices Assistive Device Front Wheeled Walker OT- Balance Assessment Sitting Balance and Reactions Static Sitting Balance Ability Good Dynamic Sitting Balance Ability Good Standing Balance and Reactions Static Standing Balance Ability Good Dynamic Standing Balance Ability Fair Comments Other Balance Tests/Deviations/Treatment one minor loss of balance when : standing to pull pants over hips M8 OT- IP Objective Assessments Start: 06/20/18 11:28 Freq: Status: Active Protocol: Document 06/20/18 11:36 [facility] (Rec: 06/20/18 12:00 [facility] [id number]) OT Gross Range of Motion Upper Extremity Range of Motion Assessment Within Functional Limits OT Strength Comments Strength Comments WFL for transfer and bed mobility needs. M9 OT- IP Assessment and Plan Start: 06/20/18 11:28 Freq: Status: Active Protocol: Document 06/21/18 10:23 [facility] (Rec: 06/21/18 10:43 PJM [id number]) OT Summary Assessment and Plan Potential Rehabilitation Potential Excellent Summary Progress Towards Goals Safe For Discharge Goals Met Assessment Summary Pt making excellent progress with increasing independence in self care and functional mobility as described above. here for education today. Pt/ verbalize and demonstrate understanding of all lumbar spine precautions. All OT goals achieved for this admission. Pt plans to d/c home tomorrow with 24 hr assist from and daughter PRN. Frequency of Treatment Frequency Of Treatment Discharge Discharge Recommendations OT Discharge Recommendations Home with Assistance Home Equipment Needs crabbing machine operator, sock aid, long shoe horn and long bath sponge provided
[2018-06-21 11:00] VITALS: BP 114/53; PULSE 77; RESP 17; TEMP 36.7; O2SAT 96
--- NOTE | 2018-06-21 11:57 | PT.IPTN ---
Current Diagnoses Spondylolisthesis, lumbar region (06/19/18) Spinal stenosis, lumbar region with neurogenic claudication (06/19/18) Surgery Performed Operation Date: 06/19/18 07:45 Actual Procedures p L4-5, L5S1 Laminectomy & Instrument Posterior fusion with bone graft - Pan Napoles MD Physical Therapy Treatment Note M2 PT-IP Current Condition Start: 06/20/18 11:04 Freq: NEEDED Status: Active Protocol: Document 06/20/18 10:15 (Rec: 06/20/18 11:24 [email or web address]) Physical Therapy Current Condition Current Condition Evaluation Date 06/20/18 Treatment Diagnosis L4-S1 TLIF, impaired gait and activity tolerance Onset Date 06/19/18 Precautions Lumbar Precautions Log Roll No Twisting Limit Bending Lifting Restriction of 10 lbs Gait Belt above Incisional Area Weight Bearing Status Weight Bearing Status Weight Bear as Tolerated M3 PT-IP Subjective Start: 06/20/18 11:04 Freq: NEEDED Status: Active Protocol: Document 06/21/18 11:44 [facility] (Rec: 06/21/18 11:56 [facility] [id number]) Subjective Physical Therapy Visit Type Type Treatment Note Visit Start Time 08:54 Visit Stop Time 09:18 Total Visit Minutes 24 Notes Pt in bed, finished breakfast. Number of SOD STRIPPER Visits 2 Physical Therapy Visit Comments Patient Comments Agreeable to PT. Patient Goals To return home with her and family. Therapy Pain Assessment Pain When Pain Assessed During Mobility Pain Present Pain Present Pain Reported Location Back Intensity 2 Scale Used Numeric (1 - 10) Pain Management Techniques Modification of Treatment Re-positioning Timing of Activity with Medications M4 PT-IP Mobility and Gait Start: 06/20/18 11:04 Freq: NEEDED Status: Active Protocol: Document 06/21/18 11:44 [facility] (Rec: 06/21/18 11:56 [facility] [id number]) PT-Bed Mobility Assessment Rolling Type of Rolling Log Rolling Roll to Left Level of Assist Standby Assistance Supine to Sit Supine to Sit Standby Assistance Sit to Supine Sit to Supine Standby Assistance Scooting Scooting to Edge of Bed Standby Assistance Scooting Up and Down in Bed Standby Assistance PT-Transfer Assessment Sit to and From Stand Sit to and from Stand Contact Guard Assistance Use of Upper Extremities Equipment Transfer Assistive Device Gait Belt Front Wheeled Walker Orthotic/Prosthetic Devices or Brace: No Transfers Transfer Destination Bed Chair Transfer Technique Stand Step Pivot Transfer Ability Level of Assist Contact Guard Assistance Use of Upper Extremities Comments Mobility Comments Pt performing log roll correctly without cues and SBA . Stand pivot txs with CGA-SBA with FWW. Pt moving slowly and gauarded but reports very low pain levels. Gait Assessment Gait Gait Assistance Required: Standby Assistance Contact Guard Assist Distance (Feet) 175 Able to Maintain Weight Bearing Status Yes During Gait Assistive Devices Assistive Device Gait Belt Front Wheeled Walker Orthotic/Prosthetic Devices or Brace: No Gait Deviations General Gait Pattern Decreased Stride Length Decreased Feet Clearance Step-to Gait Factors Limiting Gait Function Factors Limiting Gait Function Decreased Activity Tolerance Decreased Sensation Decreased Strength Limited Range of Motion Comments Gait Comments Increasing gait distance and quality of gait with safe use of FWW and increasing step length, SBA-CGA. Stair Climbing Assessment Evaluation Level of Assist On Stairs Contact Guard Assistance Devices Stair Climbing Assistive Devices Left Railing Right Railing Technique/Endurance Stair Climbing Direction Ascend and Descend Stair Climbing Technique Step to Step Number of Steps Climbed 3 Query Text: Stair Climbing Set # Repetitions (reps) 3 Comments Stair Climbing Comments Pt feeling more confident on stairs, able to complete 3x in a row with SBA-CGA and B rails. PT-Balance Assessment Sitting Balance and Reactions Static Sitting Balance Ability Normal Dynamic Sitting Balance Ability Normal M5 PT-IP Objective Assessments Start: 06/20/18 11:04 Freq: NEEDED Status: Active Protocol: Document 06/20/18 10:15 [facility] (Rec: 06/20/18 11:24 [email or web address]) Orientation Orientation/Cognition Level of Alertness Alert Orientation Name Age Birthday Month Date Year Day of Week Place Situation Language Function Ability No Deficits Noted Safety Awareness Understands Safety Issues Memory Description No Deficits Noted Gross Range of Motion Upper Extremity ROM Assessment Within Functional Limits Lower Extremity ROM Assessment Within Functional Limits Strength Upper Extremity Strength Assessment Within Functional Limits Lower Extremity Strength Assessment Bilaterally Impaired Comments Strength Comments B LEs strength 4-/5 Coordination Assessment Gross Coordination Gross Coordination WNL Assessment Finger to Nose Test Normal Performance Pronation/Supination Test Normal Performance Sensation Assessment Sensation Gross Sensation WNL Light Touch Intact Proprioception (Position) Intact Muscle Tone Muscle Tone WNL Yes M6 PT-IP Treatment Start: 06/20/18 11:04 Freq: NEEDED Status: Active Protocol: Document 06/21/18 11:44 SA (Rec: 06/21/18 11:56 [id number]) Physical Therapy Treatment Exercises Exercises Ankle Pumps Gluteal Sets Education Education Provided Precautions Weight Bearing Status Post-Op Packet Safety M7 PT-IP Assessment and Plan Start: 06/20/18 11:04 Freq: NEEDED Status: Active Protocol: Document 06/21/18 11:44 (Rec: 06/21/18 11:56 [id number]) PT Summary Assessment and Plan Potential Rehabilitation Potential Excellent Status of Condition at Evaluation Stable Summary Assessment Summary Pt improving, tolerating ambulation and stair climb well with limited spinal pain. Able to stand at sink x 5 min to brush teeth, comb hair without increase in pain. Frequency of Treatment Frequency Of Treatment Twice a Day Recommendations To Nursing Amount of Assist Needed 1 Person Assist Discharge Recommendations PT Discharge Recommendations Home with Assistance Equipment Needed for Home Before tub transfer bench Discharge
--- NOTE | 2018-06-21 13:40 | CM.DPC ---
DCP: continued: Met now with pt and her Kevin after EMR review and discussion with becca Castellanos in [employer]. Both confirm the plan for home tomorrow and acknowledge that pt did will with OT Anai today. Pt expressing eagerness to return to her nap. Pt states she has no concerns related to her d/c plan for home. P: home, likely tomorrow. spouse and daughter supportive assist.
--- NOTE | 2018-06-21 14:49 | PT.IPTN ---
Current Diagnoses Spondylolisthesis, lumbar region (06/19/18) Spinal stenosis, lumbar region with neurogenic claudication (06/19/18) Surgery Performed Operation Date: 06/19/18 07:45 Actual Procedures p L4-5, L5S1 Laminectomy & Instrument Posterior fusion with bone graft - Pan Napoles MD Physical Therapy Treatment Note M2 PT-IP Current Condition Start: 06/20/18 11:04 Freq: NEEDED Status: Active Protocol: Document 06/20/18 10:15 (Rec: 06/20/18 11:24 [email or web address]) Physical Therapy Current Condition Current Condition Evaluation Date 06/20/18 Treatment Diagnosis L4-S1 TLIF, impaired gait and activity tolerance Onset Date 06/19/18 Precautions Lumbar Precautions Log Roll No Twisting Limit Bending Lifting Restriction of 10 lbs Gait Belt above Incisional Area Weight Bearing Status Weight Bearing Status Weight Bear as Tolerated M3 PT-IP Subjective Start: 06/20/18 11:04 Freq: NEEDED Status: Active Protocol: Document 06/21/18 14:41 SA (Rec: 06/21/18 14:49 [id number]) Subjective Physical Therapy Visit Type Type Treatment Note Visit Start Time 14:00 Visit Stop Time 14:24 Total Visit Minutes 24 Notes Pt in bed and ready for Pt, present. Number of HUSBANDRY PERSON Visits 3 Physical Therapy Visit Comments Patient Comments Agreeable to PT. Patient Goals To return home with her and family. Therapy Pain Assessment Pain When Pain Assessed During Mobility Pain Present Pain Present Pain Reported Location Back Intensity 2 Scale Used Numeric (1 - 10) Pain Management Techniques Modification of Treatment Re-positioning Timing of Activity with Medications M4 PT-IP Mobility and Gait Start: 06/20/18 11:04 Freq: NEEDED Status: Active Protocol: Document 06/21/18 14:41 SA (Rec: 06/21/18 14:49 SA [id number]) PT-Bed Mobility Assessment Rolling Type of Rolling Log Rolling Roll to Left Level of Assist Standby Assistance Supine to Sit Supine to Sit Standby Assistance Sit to Supine Sit to Supine Standby Assistance Scooting Scooting to Edge of Bed Standby Assistance Scooting Up and Down in Bed Standby Assistance PT-Transfer Assessment Sit to and From Stand Sit to and from Stand Standby Assistance Use of Upper Extremities Equipment Transfer Assistive Device Gait Belt Front Wheeled Walker Orthotic/Prosthetic Devices or Brace: No Transfers Transfer Destination Bed Toilet Transfer Technique Stand Step Pivot Transfer Ability Level of Assist Standby Assistance Use of Upper Extremities Comments Mobility Comments Pt progressing well, ready for D/C tomorrow. SBA with bed mobility and transfers safely. Gait Assessment Gait Gait Assistance Required: Standby Assistance Distance (Feet) 150 Able to Maintain Weight Bearing Status Yes During Gait Assistive Devices Assistive Device Gait Belt Front Wheeled Walker Orthotic/Prosthetic Devices or Brace: No Gait Deviations General Gait Pattern Decreased Stride Length Decreased Feet Clearance Step-to Gait Factors Limiting Gait Function Factors Limiting Gait Function Decreased Activity Tolerance Decreased Sensation Decreased Strength Limited Range of Motion Comments Gait Comments Pt less gaurded this afternoon , longer step lengths and good posture with gait. Stair Climbing Assessment Evaluation Level of Assist On Stairs Standby Assistance Devices Stair Climbing Assistive Devices Left Railing Right Railing Technique/Endurance Stair Climbing Direction Ascend and Descend Stair Climbing Technique Step to Step Number of Steps Climbed 3 Query Text: Stair Climbing Set # Repetitions (reps) 3 Comments Stair Climbing Comments SBa with stairs and good safety habits. PT-Balance Assessment Sitting Balance and Reactions Static Sitting Balance Ability Normal Dynamic Sitting Balance Ability Normal M5 PT-IP Objective Assessments Start: 06/20/18 11:04 Freq: NEEDED Status: Active Protocol: Document 06/20/18 10:15 (Rec: 06/20/18 11:24 [id number]) Orientation Orientation/Cognition Level of Alertness Alert Orientation Name Age Birthday Month Date Year Day of Week Place Situation Language Function Ability No Deficits Noted Safety Awareness Understands Safety Issues Memory Description No Deficits Noted Gross Range of Motion Upper Extremity ROM Assessment Within Functional Limits Lower Extremity ROM Assessment Within Functional Limits Strength Upper Extremity Strength Assessment Within Functional Limits Lower Extremity Strength Assessment Bilaterally Impaired Comments Strength Comments B LEs strength 4-/5 Coordination Assessment Gross Coordination Gross Coordination WNL Assessment Finger to Nose Test Normal Performance Pronation/Supination Test Normal Performance Sensation Assessment Sensation Gross Sensation WNL Light Touch Intact Proprioception (Position) Intact Muscle Tone Muscle Tone WNL Yes M6 PT-IP Treatment Start: 06/20/18 11:04 Freq: NEEDED Status: Active Protocol: Document 06/21/18 14:41 SA (Rec: 06/21/18 14:49 SA [id number]) Physical Therapy Treatment Exercises Exercises Ankle Pumps Gluteal Sets Education Education Provided Precautions Weight Bearing Status Post-Op Packet Safety M7 PT-IP Assessment and Plan Start: 06/20/18 11:04 Freq: NEEDED Status: Active Protocol: Document 06/21/18 14:41 SA (Rec: 06/21/18 14:49 SA [id number]) PT Summary Assessment and Plan Summary Assessment Summary Pt ready for d/c tomorrow, SBA with gait, stairs and bed mobility. Supportive family present and pt adheres to spinal precautions. Frequency of Treatment Frequency Of Treatment Twice a Day Recommendations To Nursing Amount of Assist Needed 1 Person Assist Discharge Recommendations PT Discharge Recommendations Home with Assistance Equipment Needed for Home Before tub transfer bench Discharge
[2018-06-21 15:27] VITALS: BP 129/61; PULSE 82; RESP 18; TEMP 36.7; O2SAT 96
[2018-06-21] MEDS: HYDROCODONE/ACET 5/325 TABLET 2 TAB PO ×2 (18:20→23:25)
[2018-06-21] MEDS: GABAPENTIN 300 MG CAPSULE PO (20:54)
[2018-06-21] MEDS: SENNOSIDES 8.6 MG TABLET 17.2 MG PO (20:54)
[2018-06-21 23:34] VITALS: BP 107/41; PULSE 77; RESP 18; TEMP 36.7; O2SAT 93
--- NOTE | 2018-06-21 23:40 | PC.NURSE ---
Addendum entered by Shanika Beltran R.N. 06/22/18 06:30: Slept well. States no pain this morning. IV d'cd as site . Refusing SCD's. Original Note: Patient is alert and oriented. Breath sounds diminished but CTA with RA sat of 93%. HRR. Denies nausea. BT present and abdomen is soft; had 2 BM's earlier today. Voiding without dysuria, frequency or urgency and is continent. Complains of 8/10 left leg pain so assisted to reposition and medicated with Vicodin; states pain down to 6/10 just with the repositioning. Dressing to back with no new drainage; intact. Declines offer of ice pack. Left lateral leg numbness still present otherwise CMS is intact. Foot SCD's on at shift change but now requested they be off because they are interfering with her ability to sleep; reminded to ankle wave when awake. Fall risk score is moderate; bed alarm is activated. Able to turn herself and when out of bed is assisted with 1 person + walker. Plans to DC in a.m.
[2018-06-22 05:00] VITALS: BP 96/44; PULSE 67; RESP 18; TEMP 36.6; O2SAT 97
--- NOTE | 2018-06-22 07:34 | PM.PNPO.1 ---
Subjective Date Patient Seen: 06/22/18 Time Patient Seen: 07:34 Interval history: She is doing well. almost completely independent with mobility. Exam Vital Signs (past 8 hours): - 06/22/18 05:00 Temperature 97.9 F Pulse Rate 67 Respiratory Rate 18 Blood Pressure 96/44 L Pulse Oximetry 97 Fraction of Inspired Oxygen 21 Oxygen Delivery Method Room Air Oxygen Flow Rate 0 Const Orientation: alert and oriented x3 Back/Spine/Pelvis Other: Minimal dry drainage. 5/5 motor both lower extremities. Objective Labs Result Diagrams: 06/20/18 05:57 Assessment & Plan Post-op Postoperative Procedures Operation Date: 06/19/18 07:45 Actual Procedures Side Surgeon p Translaminar Interbody Fusion/Laminotomy L4-5, L5-S1 Pan Napoles MD She is doing very well. Discharged home today. Quality VTE Deep Vein Thrombosis/Pulmonary Embolism Present on Admission: No
--- NOTE | 2018-06-22 07:37 | P.DS_ITS ---
History of Present Illness Date Patient Seen: 06/22/18 Time Patient Seen: 07:35 Chief complaint: [id number] Narrative: 78-year-old female with spinal stenosis. Severe right leg pain with standing. She had failed conservative management with therapy and epidural injections. Discharge Providers Date of admission: 06/19/18 06:08 Discharge Date: 06/22/18 Primary care physician: Ricky Hay MD Consults: 06/19/18 13:06 Consult to Occupational Therapy Evaluate & Treat Comment: Physician Instructions: Evaluate and treat Consult to Physical Therapy Evaluate & Treat Comment: Physician Instructions: Evaluate and Treat Discharge provider: Pan Napoles MD Summary Discharge Diagnosis: Lumbar stenosis with radiculopathy Lumbar spondylolisthesis Hospital Course: She was admitted on 06/19/2018 for a L4 through S1 laminectomy and TLIF. She had an uneventful postoperative course. She progressed well with physical therapy afterwards and by date of discharge was essentially independent with mobility. Status at Discharge Cognitive/behavioral status at discharge: at baseline, oriented Functional status at discharge: uses cane/walker Overall status at discharge: patient is progressing back to baseline Exam Vital Signs (past 8 hours): - 06/22/18 05:00 Temperature 97.9 F Pulse Rate 67 Respiratory Rate 18 Blood Pressure 96/44 L Pulse Oximetry 97 Fraction of Inspired Oxygen 21 Oxygen Delivery Method Room Air Oxygen Flow Rate 0 Const Orientation: alert and oriented x3 Back/Spine/Pelvis Other: CDI. 5/5 motor both lower extremities. Objective Labs Result Diagrams: 06/20/18 05:57 Discharge Plan Discharge Plan Patient Disposition: Home Discharge comment: f/u 1.5 wks Discharge Med Rec/Prescriptions Prescriptions: New celecoxib [Celebrex] 200 mg Capsule 200 mg PO BID PRN (Reason: pain) Qty: 60 RF: 0 hydrocodone-acetaminophen 5-325 mg Tablet See Rx Instructions .ROUTE .COMPLEX PRN (Reason: Pain, Moderate (4-6)) Qty: 40 RF: 0 hydroxyzine pamoate 25 mg Capsule 25 mg PO Q4HR PRN (Reason: spams) Qty: 20 RF: 0 docusate sodium 100 mg Capsule 100 mg PO BID PRN (Reason: constipation) Qty: 40 RF: 0 Continued aspirin 81 MG tablet,delayed release (DR/EC) 81 mg PO QDAY Qty: 0 RF: 0 [VITAMIN D3] 5,000 iu PO QDAY Qty: 0 RF: 0 [CO-Q-10] 100 mg PO QDAY Qty: 0 RF: 0 [VITAMIN C] 500 mg PO QDAY Qty: 0 RF: 0 [RED YEAST RICE] 1,200 mg PO BID Qty: 0 RF: 0 [BEE POLLEN] 1,000 mg PO QDAY Qty: 0 RF: 0 naproxen sodium [Aleve] 220 MG tablet 220 mg PO BIDCC Qty: 0 RF: 0 [OMEGA 3 FISH OIL] 300 mg PO TID Qty: 0 RF: 0 [THYROSOL] 1 tab PO BID Qty: 0 RF: 0 amlodipine [Norvasc] 5 mg tablet 5 mg PO QDAY Qty: 90 RF: 3 triamterene-hydrochlorothiazid 37.5-25 mg tablet 1 tab PO QDAY Qty: 90 RF: 3 acyclovir 400 mg tablet 400 mg PO Q8H PRN (Reason: outbreak) Qty: 15 RF: 2 albuterol sulfate [Ventolin HFA] 90 MCG/PUFF HFA aerosol inhaler 1 puff INH Q4HP PRN (Reason: Shortness Of Breath) RF: 0 Follow up/Referrals: Ricky Hay MD [Primary Care Provider] - Provider Discharge Instructions Diet: Diet as Tolerated Activity: limited BLT 10 lbs max Skin/Wound/Dressing Care Report to your healthcare provider any signs of infection, such as:: chills, fe lisa, night sweats, increased pain, unusual drainage and unusual redness Dressing: may change dressing and shower POD#5 Visit Report/Discharge Packet Instructions: DI for Transforaminal Lumbar Interbody Fusion Stand Alone Forms: Surgery Discharge Discharge Data Primary Care Provider: Ricky Hay Attending Provider: Pan Napoles Admit Date/Time: 06/19/18 06:08 Quality VTE Deep Vein Thrombosis/Pulmonary Embolism Present on Admission: No
[2018-06-22] MEDS: HYDROCODONE/ACET 5/325 TABLET 2 TAB PO (08:11)
[2018-06-22] MEDS: AMLODIPINE 5 MG TABLET PO (08:18)
[2018-06-22] MEDS: ASPIRIN EC 81 MG TABLET PO (08:18)
[2018-06-22] MEDS: ASCORBIC ACID 500 MG TABLET PO (08:18)
[2018-06-22] MEDS: CELECOXIB 200 MG CAPSULE PO (08:18)
[2018-06-22] MEDS: DOCUSATE 100 MG CAPSULE PO (08:19)
[2018-06-22] MEDS: TRIAMTERENE/HCTZ 37.5/25 TABLET 1 CAP PO (08:19)
[2018-06-22] MEDS: FISH OIL 1,000 MG CAPSULE 1000 MG PO (08:19)
[2018-06-22] MEDS: CHOLECALCIFEROL (VITAMIN D3) 5,000 UNIT TABLET 5000 UNIT PO (08:19)
[2018-06-22 09:00] VITALS: BP 143/60; PULSE 90; RESP 16; TEMP 36.3; O2SAT 99
--- NOTE | 2018-06-22 09:12 | PC.NURSE ---
Addendum entered by Josette Herman R.N. 06/22/18 10:15: PT ambulated pt in halls and is cleared for DC. to arrive around 11am. Original Note: Addendum entered by Josette Herman R.N. 06/22/18 10:15: Showering IND (set up assist) Original Note: AM Shift pt AO and receptive to care. C/O right hip and leg pain, back is mild pain with rest and will increase to 9/10 with movement. Administered 10mg [place] at 0800. pt reports a decrease in pain since. Ambulating in halls with PT, up to BR and voiding. No IV access (IV on NOC shift and hopeful pt will DC post-PT eval).
--- NOTE | 2018-06-22 09:30 | PT.IPTN ---
Current Diagnoses Spondylolisthesis, lumbar region (06/19/18) Spinal stenosis, lumbar region with neurogenic claudication (06/19/18) Surgery Performed Operation Date: 06/19/18 07:45 Actual Procedures p Translaminar Interbody Fusion/Laminotomy L4-5, L5-S1 - Pan Napoles MD Physical Therapy Treatment Note M2 PT-IP Current Condition Start: 06/20/18 11:04 Freq: NEEDED Status: Active Protocol: Document 06/20/18 10:15 HH (Rec: 06/20/18 11:24 [email or web address]) Physical Therapy Current Condition Current Condition Evaluation Date 06/20/18 Treatment Diagnosis L4-S1 TLIF, impaired gait and activity tolerance Onset Date 06/19/18 Precautions Lumbar Precautions Log Roll No Twisting Limit Bending Lifting Restriction of 10 lbs Gait Belt above Incisional Area Weight Bearing Status Weight Bearing Status Weight Bear as Tolerated M3 PT-IP Subjective Start: 06/20/18 11:04 Freq: NEEDED Status: Active Protocol: Document 06/22/18 09:30 GGD (Rec: 06/22/18 11:39 GGD [id number]) Subjective Physical Therapy Visit Type Type Treatment Note Visit Start Time 09:05 Visit Stop Time 09:30 Total Visit Minutes 25 Number of CORE MEASURES ABSTRACTOR Visits 4 Physical Therapy Visit Comments Patient Comments Pt states she doning better. Therapy Pain Assessment Pain When Pain Assessed At Rest Pain Present Pain Present Denied Pain M4 PT-IP Mobility and Gait Start: 06/20/18 11:04 Freq: NEEDED Status: Active Protocol: Document 06/22/18 09:30 GGD (Rec: 06/22/18 11:39 GGD [id number]) PT-Bed Mobility Assessment Rolling Type of Rolling Log Rolling Roll to Left Level of Assist Standby Assistance Sit to Supine Sit to Supine Standby Assistance Scooting Scooting to Edge of Bed Standby Assistance PT-Transfer Assessment Sit to and From Stand Sit to and from Stand Standby Assistance Use of Upper Extremities Equipment Transfer Assistive Device Gait Belt Front Wheeled Walker Orthotic/Prosthetic Devices or Brace: No Transfers Transfer Destination Bed Transfer Technique Stand Step Pivot Transfer Ability Level of Assist Standby Assistance Use of Upper Extremities Gait Assessment Gait Gait Assistance Required: Standby Assistance Distance (Feet) 220 Able to Maintain Weight Bearing Status Yes During Gait Assistive Devices Assistive Device Gait Belt Front Wheeled Walker Orthotic/Prosthetic Devices or Brace: No Gait Deviations General Gait Pattern Decreased Stride Length Decreased Feet Clearance Step-to Gait Factors Limiting Gait Function Factors Limiting Gait Function Decreased Activity Tolerance Decreased Sensation Decreased Strength Limited Range of Motion M5 PT-IP Objective Assessments Start: 06/20/18 11:04 Freq: NEEDED Status: Active Protocol: Document 06/20/18 10:15 HH (Rec: 06/20/18 11:24 [email or web address] Orientation Orientation/Cognition Level of Alertness Alert Orientation Name Age Birthday Month Date Year Day of Week Place Situation Language Function Ability No Deficits Noted Safety Awareness Understands Safety Issues Memory Description No Deficits Noted Gross Range of Motion Upper Extremity ROM Assessment Within Functional Limits Lower Extremity ROM Assessment Within Functional Limits Strength Upper Extremity Strength Assessment Within Functional Limits Lower Extremity Strength Assessment Bilaterally Impaired Comments Strength Comments B LEs strength 4-/5 Coordination Assessment Gross Coordination Gross Coordination WNL Assessment Finger to Nose Test Normal Performance Pronation/Supination Test Normal Performance Sensation Assessment Sensation Gross Sensation WNL Light Touch Intact Proprioception (Position) Intact Muscle Tone Muscle Tone WNL Yes M6 PT-IP Treatment Start: 06/20/18 11:04 Freq: NEEDED Status: Active Protocol: Document 06/22/18 09:30 GGD (Rec: 06/22/18 11:39 GGD [id number]) Physical Therapy Treatment Exercises Exercises Ankle Pumps Education Education Provided Precautions Safety M7 PT-IP Assessment and Plan Start: 06/20/18 11:04 Freq: NEEDED Status: Active Protocol: Document 06/22/18 09:30 GGD (Rec: 06/22/18 11:39 GGD [id number]) PT Summary Assessment and Plan Summary Assessment Summary Pt improving with mobility. She was safe with gait and bed mobility. Pt safe for home D/ C when medically stable. Frequency of Treatment Frequency Of Treatment Twice a Day Recommendations To Nursing Amount of Assist Needed 1 Person Assist Discharge Recommendations PT Discharge Recommendations Home with Assistance Equipment Needed for Home Before tub transfer bench Discharge
== END 2018-06-22 12:54 | disposition home or self-care (01) | DRG 455 ==
PROVIDERS: Admitting Provider Orthopaedic Surgery; Family Provider Family Medicine; PCP Family Medicine; Visit Provider Orthopaedic Surgery
PROC: 0SG00AJ Fusion of Lumbar Vertebral Joint with Interbody Fusion Device, Posterior Approach, Anterior Column, Open Approach (ICD-10-PCS; principal; 2018-06-19 07:45)
DX: M48.062 Spinal stenosis, lumbar region with neurogenic claudication (principal); M43.16 Spondylolisthesis, lumbar region; M54.9 Dorsalgia, unspecified
CPT/HCPCS: 36415; 72100; 76000; 85014; 85018; 94760; 94762; 97116; 97161; 97165; 97530; 97535; C1776; A9270; J0330; J0595; J0690; J1100; J1170; J2274; J2405; J2704; J3010; J3410

== ENCOUNTER 2018-12-05 15:00 | Observation (INO) | payer MEDICARE, OTHER, SELFPAY ==
[2018-06-19 13:19] VITALS: BMI 26.2
[2018-11-22 13:56] VITALS: BMI 25.4
[2018-12-04] VITALS (12 sets, daily range): BP systolic 117–157; BP diastolic 55–80; PULSE 67–86; RESP 15–22; TEMP 36.2–37.1; O2SAT 91–97; BMI 25.4
--- NOTE | 2018-12-04 06:00 | DI.RAD.S_ITS ---
PROCEDURE: XR KNEE LT 1TO2V INDICATIONS: post operative films TECHNIQUE: 2 view(s) of the knee acquired. COMPARISON: [facility]A Lauren, XR KNEE ARTHRITIC SERIES LT, 10/24/2018, 13:40. FINDINGS: Bones: Patient is status post knee joint arthroplasty. Hardware components are in expected positions. Visualized bony structures are intact. Soft tissues: Overlying postoperative changes are noted. IMPRESSION: The left knee prosthesis is in anatomic alignment. Dictated by: Shelly Miller M.D. on 12/04/2018 at 17:48 Approved by: Shelly Miller M.D. on 12/04/2018 at 17:48
[2018-12-04] MEDS: LACTATED RINGERS 1,000 ML 42 ML IV (11:51)
[2018-12-04] MEDS: CELECOXIB 200 MG CAPSULE PO (12:01)
[2018-12-04] MEDS: PREGABALIN 75 MG CAPSULE PO (12:01)
[2018-12-04] MEDS: ACETAMINOPHEN 325 MG TABLET 975 MG PO ×2 (12:01→20:16)
--- NOTE | 2018-12-04 12:31 | PM.PREOP ---
Pre-operative Note Interval Note History & Physical reviewed/Exam performed by Physician: Yes Changes to H&P: No
[2018-12-04] MEDS: CEFAZOLIN 2 GM/100 ML FROZ.PIGGY IV (13:13)
[2018-12-04] MEDS: TRANEXAMIC ACID 1,000 MG VIAL 1000 MG INJ ×2 (13:30→14:35)
[2018-12-04] MEDS: MORPHINE 4 MG/ML INJ INJ (13:54)
[2018-12-04] MEDS: BUPIVACAINE 0.25% W/ EPI 30 ML VIAL 60 ML INJ (13:54)
[2018-12-04] MEDS: BUPIVACAINE LIPOSOME 266 MG/20 ML VIAL INJ (13:55)
--- NOTE | 2018-12-04 15:04 | PM.OP.1 ---
Operative Date/Time/Diagnoses Date of procedure: 12/04/18 Time of procedure: 14:50 Pre-op diagnosis: Left knee osteoarthritis Post-op diagnosis: same Procedure & Clinicians Procedure: Left total knee replacement Same procedure as scheduled: Yes Indications: The patient has had progressively worsening left knee pain with radiographic changes consistent with arthritis. Non-operative management has failed and the patient has requested total knee replacement. The risks, benefits and alternatives to surgery were discussed with the patient prior to proceeding. Risks discussed included, but were not limited to, failure to relieve pain, stiffness, infection, nerve damage, deep venous thrombosis, pulmonary embolism, stroke, coma, heart attack, permanent paralysis and , as well as the potential need for eventual revision of the prosthetic. Surgeon: Skyler Yan Driveway Sealer: Treva Donato Click Yes if Unassisted: No Anesthesia Type: General, Spinal and Local Operative Notes Findings: Significant medial and moderate patellofemoral osteoarthritis Closure Type: primary Specimen(s): none sent Prosthetic devices, grafts, tissues, transplants, or devices: Implants used in this procedure were manufactured by the [employer] and [employer] and included the BCS II Journey total knee replacement with a size 4 left cobalt chromium femoral component, a size 3 left non porous tibial base plate, a 9 mm cross-linked polyethylene tibial insert, and a 32 mm oval Fabienne II patella. Applied: implant(s) Estimated Blood Loss (mL): 25 Blood products transfused: none Tourniquet time (min): 54 Procedure in detail: The patient was seen in the pre-operative area, where the left knee was identified as the operative site and this was marked with my initials. The patient received pre-operative antibiotics, and was taken to the operating room and placed on the operative table in the supine position. After satisfactory anesthesia, a time study engineer out? was performed. The left leg was encircled with a tourniquet about the proximal thigh, and the leg was prepared from the toes to the tourniquet with ChloroPrep in the usual fashion and draped through sterile drapes. The leg was elevated and exsanguinated with Eschmark bandage and the tourniquet inflated to 250 mmHg pressure. The knee was approached through an approximately 18 cm incision centered over the patella and carried into the knee through a medial parapatellar arthrotomy. The anterior osteophytes and soft tissues were removed. The rotational landmarks of [place]'s line and the transepicondylar axis were marked on the femur with electrocautery, and intramedullary guide holes for the femur and tibia were created. The distal femoral cut was made in 6 degrees of valgus using the intramedullary guide at the primary cut setting. The proximal tibial cut was then made using the intramedullary guide, taking 9 mm of bone off the less involved side. The extension gap was checked and the rotation of the femoral component confirmed with the gap balancing blocks. The anterior, posterior and chamfer cuts were then made. The posterior osteophytes and soft tissues were then removed. The posterior capsule was injected with part of a mixture of 60 ml 0.25% Marcaine mixed with 20 ml Exparel and 4 mg of morphine for post-operative pain control. The remainder of this mixture was injected into the capsule and subcutaneous tissues during cement curing. The tibia was prepared with the rotation set by an extra medullary guide. Trial tibial and femoral components were then placed and the intercondylar notch cut through the femoral trial. Range of motion was 0-135 degrees, with good stability throughout the range. The patella was then cut to accommodate the patellar prosthetic. There was no need for a lateral release. The trials were then removed, and the femoral hole plugged with a bone plug. The bone was prepared with pulsatile lavage, and dried with a sponge. Cement was applied and the final prosthetics placed. Excess cement was removed during and after cement curing. After confirming there was no extruded cement posteriorly, the final tibial insert was placed. The knee was copiously irrigated and the tourniquet deflated. Hemostasis was obtained. The capsule was closed with interrupted # 2 polyester sutures. The subcutaneous layer was closed with 3-0 Vicryl, and the skin with a running 3-0 V-Lock suture and SteriStrips. An Aquacel Ag dressing was applied and the patient was taken to recovery having tolerated the procedure well. Complications: none Post-operative Condition: stable Disposition: PACU Plan for aftercare: The patient will be maintained on a standard total knee replacement protocol with weight bearing as tolerated. The patient will receive aspirin and sequential compression devices for DVT prophylaxis. The patient will be discharged home when safe for the home environment.
--- NOTE | 2018-12-04 15:54 | SUR.PHASEI ---
Stable PACU stay, report to kyle yusuf. Room not clean, awaiting call back.
--- NOTE | 2018-12-04 16:24 | SUR.PHASEI ---
Pt transported up to room 206, left with MACHO Benitez in stable condition.
[2018-12-04] MEDS: LACTATED RINGERS 1,000 ML 125 ML IV (16:45)
[2018-12-04] MEDS: OXYCODONE/ACETAMINOPHEN 5/325 TABLET 1 TAB PO (20:16)
[2018-12-04] MEDS: ASPIRIN EC 81 MG TABLET PO (20:16)
--- NOTE | 2018-12-04 22:54 | PC.NURSE ---
Post-op notes: Shanika brought from PACU to rm 206, awake, oriented x 3 and situation. VS stable. RA oxygen 92-98% Skin pallor. Has denied nausea tonight and tolerated general meal. Later transferred to BSC, incontinent of urine when she stood up at side of bed, also able to void additional urine when sitting on BSC. Back to bed, she did report some dizziness but no nausea with movement. Drsg to left knee remains CDI. Pt reports residual numbness to LLE but feels nurse hand on her lower leg & foot, wiggling toes actively, wearing bilateral SCD's. Fall precautions in place, alarm active tonight.
[2018-12-05] VITALS (7 sets, daily range): BP systolic 108–114; BP diastolic 50–60; PULSE 73–88; RESP 16–18; TEMP 36.3–36.9; O2SAT 95–98
[2018-12-05] MEDS: LACTATED RINGERS 1,000 ML 125 ML IV (00:39)
[2018-12-05] MEDS: OXYCODONE/ACETAMINOPHEN 5/325 TABLET 1 TAB PO (00:41)
--- NOTE | 2018-12-05 00:57 | PC.NURSE ---
Addendum entered by Shanika Beltran R.N. 12/05/18 06:17: States pain medication given earlier helped her to sleep and didn't have any further pain until gotten out of bed to BSC this morning. Currently rates pain severity as 4/10 but wants to wait for breakfast for pain meds so she is prepared for PT later this morning. Original Note: Patient is alert and oriented. Breath sounds CTA with RA sat of 95%; remains on continuous pulse oximeter. HRR. Denies nausea. BT hypoactive and denies flatus. Up to BS with walker and 1 assist. Able to move self in bed. Aquacel + kurtis to left LE is CDI. Complains of 8/10 pain after being out of bed so medicated with Percocet and ice applied. CMS is intact. Wearing bilateral SCD's. Reports having tripped and fallen x 1 in past 3 months so fall risk score is high and bed alarm is activated.
[2018-12-05 06:47] LABS: Hematocrit 33.2 % (36-46)
--- NOTE | 2018-12-05 07:46 | PM.PNPO.1 ---
Subjective Subjective Date Patient Seen: 12/05/18 Time Patient Seen: 07:47 Interval history: Patient is POD#1 s/p left total knee with Dr. Yan. Her pain has been well controlled. She has been up to commode but otherwise has not mobilized yet. She is voiding and has tolerated a diet. She denies chest pain, shortness of breath, calf pain, nausea or vomiting. Exam Vital Signs (past 8 hours): - 12/04/18 23:50 12/05/18 06:39 Temperature 98.5 F 98.0 F Pulse Rate 80 79 Respiratory Rate 16 17 Blood Pressure 117/55 L 108/55 L Pulse Oximetry 95 98 Oxygen Delivery Method Room Air Oxygen Flow Rate 0 Narrative Exam Narrative: 78 year old female resting comfortably in bed. Alert and oriented in no acute distress. Dressing in place over knee is clean, dry, and intact. Patient flexing/extending foot and ankle. Palpable pedal pulse. Soft compressible calf. Objective Labs Result Diagrams: 12/05/18 06:31 Labs: Laboratory Results - last 24 hr 12/05/18 06:31 Hgb 11.0 L Hct 33.2 L Assessment & Plan Post-op Postoperative Procedures: Procedures Operation Date: 12/04/18 13:15 Actual Procedures Side Surgeon p Total Knee Arthroplasty Left Skyler Yan MD Patient progressing well post op. Plan for today is to mobilize with physical therapy. Patient has chronic right sided clavicle pain which may complicate her progress. Continue DVT prophylaxis. Likely discharge to home tomorrow. Quality VTE Deep Vein Thrombosis/Pulmonary Embolism Present on Admission: No
[2018-12-05] MEDS: TRIAMTERENE/HCTZ 37.5/25 TABLET 1 CAP PO (09:00)
[2018-12-05] MEDS: ACETAMINOPHEN 325 MG TABLET 975 MG PO ×3 (09:00→21:13)
[2018-12-05] MEDS: ASPIRIN EC 81 MG TABLET PO ×2 (09:00→21:14)
[2018-12-05] MEDS: OXYCODONE IR 5 MG TABLET PO ×3 (09:00→21:13)
[2018-12-05] MEDS: MELOXICAM 7.5 MG TABLET 15 MG PO (09:04)
--- NOTE | 2018-12-05 09:05 | PT.IIE ---
Current Diagnoses Unilateral primary osteoarthritis, left knee (12/04/18) Surgery Performed Operation Date: 12/04/18 13:15 Actual Procedures p Total Knee Arthroplasty(Left) - Skyler Yan MD Surgical History (Last Updated 11/22/18 @ 14:20 by Keesha Dhillon, RN) History of bilateral carpal tunnel release (Acute) Hx of appendectomy (Resolved 1974) Hx of arthroscopy of right knee (Acute) Hx of cholecystectomy (Acute 04/11/18) Hx of dilation and curettage (Acute) Hx of tonsillectomy (Acute) S/P lumbar fusion (Acute 06/19/18) Status post bilateral cataract extraction (Acute) Status post delivery (1968) Medical History (Last Updated 06/05/18 @ 10:47 by Keesha Dhillon RN) Anxiety (Acute) Back pain (Acute) Bowel obstruction (Acute) Chronic obstructive pulmonary disease (Chronic 05/20/16) Colon obstruction (Resolved 1974) Essential hypertension (Chronic 04/01/16) Eustachian tube dysfunction (Chronic) Numbness and tingling (Acute) Osteopenia (Acute) Pneumonia (Acute ~06/2017) Pure hypercholesterolemia (Chronic 04/01/16) Restrictive lung disease (Chronic 04/05/17) Rheumatoid arthritis (Chronic 04/11/16) Sciatica (Acute) Physical Therapy Inpatient Evaluation/Re-Eval M1 PT/OT-IP Prior Functional Status Start: 12/05/18 08:19 Freq: NEEDED Status: Active Protocol: Document 12/05/18 17:50 HH (Rec: 12/05/18 11:04 [id number]) Medical Review Prior Functional Status Medical History Reviewed Yes Diet/Fluid Consistency Regular Communication Able to make needs known. No deficits noted Mobility and Gait independent for home and community mobility. Pt fell once within the past 3 months. Activities of Daily Living and IADL's independent for ADLs. assisted in dish washing, laundry and house cleaning. Dtr/ granddtrs assistted in bed change/ vacuuming. Pt is able to drive and grocery shop . Social History Household Members spouse,children Living Arrangements House Number of Floors (Floors) Two Floors Number of Stairs To Enter/Railing? Split level home with 3 CLOTILDE B rails, 8 steps to 2nd floor with L rail Home Environment High Toilet,Tub/Shower Home Equipment Front Wheel Walker,Straight Cane,Shower Seat with Backrest Employment Status Retired Additional Social History Comment Pt lives with her Kevin in [place]. Pt lives on 2nd floor and rented out basement to grandson. Pt;s dtr and granddtrs live close by who are able to assist as needed. Pt had back sx at in June. She is scheduled for outpatient PT at [facility]. M2 PT-IP Current Condition Start: 12/05/18 08:19 Freq: NEEDED Status: Active Protocol: Document 12/05/18 17:50 HH (Rec: 12/05/18 11:04 [email or web address]) Physical Therapy Current Condition Current Condition Evaluation Date 12/05/18 Treatment Diagnosis L TKA, difficulty in walking Onset Date 12/04/18 Weight Bearing Status Weight Bearing Status Weight Bear as Tolerated M3 PT-IP Subjective Start: 12/05/18 08:19 Freq: NEEDED Status: Active Protocol: Document 12/05/18 17:50 HH (Rec: 12/05/18 11:04 [email or web address]) Subjective Physical Therapy Visit Type Type Initial Evaluation Visit Start Time 09:05 Visit Stop Time 09:34 Total Visit Minutes 29 Number of SOFTWARE ENGINEER DEVELOPER Visits 0 Physical Therapy Visit Comments Patient Comments Agreeable to mobilize with PT Patient Goals To return home wtih family. Therapy Pain Assessment Pain When Pain Assessed During Mobility Pain Present Pain Present Pain Reported Location Left Knee Intensity 4 Scale Used Numeric (1 - 10) Description Acute Pain Management Techniques Apply Cold,Modification of Treatment,Timing of Activity with Medications M4 PT-IP Mobility and Gait Start: 12/05/18 08:19 Freq: NEEDED Status: Active Protocol: Document 12/05/18 17:50 HH (Rec: 12/05/18 11:04 [email or web address]) PT-Transfer Assessment Sit to and From Stand Sit to and from Stand Contact Guard Assistance Equipment Transfer Assistive Device Gait Belt,Front Wheeled Walker Orthotic/Prosthetic Devices or Brace: No Transfers Transfer Destination Bed,Chair,Toilet Transfer Technique Stand Step Pivot Transfer Ability Level of Assist Contact Guard Assistance, Minimal Assistance,Use of Upper Extremities Comments Mobility Comments BP during mobility = 120s/50s. Pt was up in chair upon assessment. She was able to stand up with SBA with FWW. She then amb a total of 90 ft with FWW, along with step to < > step over gait. Decreased stance phase on L LE noted with lateral trunk lean. She was able to improve her step length slightly over the course of gait training but did c/o fatigue and requested to return to chair. Pt did use toilet before she returned to chair. She needed to use grab bar on left and min A to stand up due to its lower toilet height. Recommended RN to place raised toilet seat with armrest after session. Gait Assessment Gait Gait Assistance Required: Contact Guard Assist Distance (Feet) 90 Assistive Devices Assistive Device Gait Belt,Front Wheeled Walker Orthotic/Prosthetic Devices or Brace: No Gait Deviations General Gait Pattern Decreased Stride Length, Decreased Feet Clearance, Lateral Trunk Lean,Step-to Gait Factors Limiting Gait Function Factors Limiting Gait Function Decreased Activity Tolerance, Decreased Strength,Limited Range of Motion,Pain,Poor Balance,Poor Safety Awareness Comments Gait Comments see mobility comments Stair Climbing Assessment Evaluation Level of Assist On Stairs Contact Guard Assistance Devices Stair Climbing Assistive Devices Left Railing,Right Railing Technique/Endurance Stair Climbing Direction Ascend and Descend Stair Climbing Technique Step to Step Number of Steps Climbed 3 Query Text: Stair Climbing Set # Repetitions (reps) 2 PT-Balance Assessment Sitting Balance and Reactions Static Sitting Balance Ability Normal Dynamic Sitting Balance Ability Normal Standing Balance and Reactions Static Standing Balance Ability Normal Dynamic Standing Balance Ability Good Device Used FWW M5 PT-IP Objective Assessments Start: 12/05/18 08:19 Freq: NEEDED Status: Active Protocol: Document 12/05/18 17:50 (Rec: 12/05/18 11:04 [email or web address]) Orientation Orientation/Cognition Level of Alertness Alert Orientation Name,Age,Birthday,Month,Date, Year,Day of Week,Place, Situation Language Function Ability No Deficits Noted Memory Description No Deficits Noted Gross Range of Motion Upper Extremity ROM Assessment Within Functional Limits Lower Extremity ROM Assessment Left Impaired Impairments L knee AROM 4- 95 degrees Strength Upper Extremity Strength Assessment Within Functional Limits Lower Extremity Strength Assessment Left Impaired Hip 4+/5 Knee 4-/5 Coordination Assessment Gross Coordination Gross Coordination WNL Sensation Assessment Sensation Gross Sensation WNL Muscle Tone Muscle Tone WNL Yes M6 PT-IP Treatment Start: 12/05/18 08:19 Freq: NEEDED Status: Active Protocol: Document 12/05/18 17:50 (Rec: 12/05/18 11:04 [email or web address]) Physical Therapy Treatment Exercises Exercises Ankle Pumps,Gluteal Sets,Quad Sets,Heel Slides Education Education Provided Precautions,Weight Bearing Status,Post-Op Packet,Safety Other Treatments Other Treatment Performed Adjusted pt's walker height M7 PT-IP Assessment and Plan Start: 12/05/18 08:19 Freq: NEEDED Status: Active Protocol: Document 12/05/18 17:50 HH (Rec: 12/05/18 11:04 [email or web address]) PT Summary Assessment and Plan Potential Rehabilitation Potential Excellent Status of Condition at Evaluation Stable Summary Impairments Pain,ROM,Strength,Balance,Bed Mobility,Transfers,Gait, Activity Tolerance Assessment Summary Pt is a low complexity who is POD#2 L TKA. Pt performed very well overall who amb 90 ft and climbed 3 steps x2 sets with CGA and FWW. Pt did need min A and used of grab bar while getting up from regular toilet seat. Recommended RN to place raised toilet seat with armrest. Pt lives on 2nd floor and has a total of 11 steps (3 from entrance, 8 to second floor) to negotiate. Therefore, pt will have to reach rehab goals prior to d/c home with family's assistance . Goals Bed Mobility Goal Independent Transfer Goal Standby Assistance,Front Wheeled Walker Gait Goal Standby Assistance,Front Wheel Walker Gait Distance 150 Other Goals climb 3 CLOTILDE with Brails SBA 8 steps with L rails SBA Days to Meet Goals 5 Frequency of Treatment Frequency Of Treatment Twice a Day Treatment Plan Physical Therapy Treatment Plan Bed Mobility Training,Transfer Training,Gait Training, Therapeutic Exercise,Balance Retraining,Post Op Education, Discharge Planning,Hot or Cold Pack,Neuromuscular Re-ed Other Recommendations and Next Treatment stair climbing 11 steps in Focus total CG trainining for pt handling transfers and gait traininga s virgil Recommendations To Nursing Amount of Assist Needed 1 Person Assist Discharge Recommendations PT Discharge Recommendations Home with Assistance, Outpatient PT Equipment Needed for Home Before tub transfer bench Discharge
--- NOTE | 2018-12-05 14:50 | PT.IPTN ---
Current Diagnoses Unilateral primary osteoarthritis, left knee (12/04/18) Surgery Performed Operation Date: 12/04/18 13:15 Actual Procedures p Total Knee Arthroplasty(Left) - Skyler Yan MD Physical Therapy Treatment Note M2 PT-IP Current Condition Start: 12/05/18 08:19 Freq: NEEDED Status: Active Protocol: Document 12/05/18 09:05 HH (Rec: 12/05/18 11:04 [email or web address]) Physical Therapy Current Condition Current Condition Evaluation Date 12/05/18 Treatment Diagnosis L TKA, difficulty in walking Onset Date 12/04/18 Weight Bearing Status Weight Bearing Status Weight Bear as Tolerated M3 PT-IP Subjective Start: 12/05/18 08:19 Freq: NEEDED Status: Active Protocol: Document 12/05/18 14:50 GGD (Rec: 12/05/18 16:09 GGD [id number]) Subjective Physical Therapy Visit Type Type Treatment Note Visit Start Time 14:20 Visit Stop Time 14:50 Total Visit Minutes 30 Number of ELEVATOR WORKER Visits 1 Physical Therapy Visit Comments Patient Comments Pt willing to work with therapy. Therapy Pain Assessment Pain When Pain Assessed During Mobility Pain Present Pain Present Pain Reported Location Left Knee Intensity 5 Scale Used Numeric (1 - 10) M4 PT-IP Mobility and Gait Start: 12/05/18 08:19 Freq: NEEDED Status: Active Protocol: Document 12/05/18 14:50 GGD (Rec: 12/05/18 16:09 GGD [id number]) PT-Bed Mobility Assessment Sit to Supine Sit to Supine Standby Assistance PT-Transfer Assessment Sit to and From Stand Sit to and from Stand Contact Guard Assistance Equipment Transfer Assistive Device Gait Belt,Front Wheeled Walker Orthotic/Prosthetic Devices or Brace: No Transfers Transfer Destination Bed,Toilet Transfer Technique Stand Step Pivot Transfer Ability Level of Assist Contact Guard Assistance, Minimal Assistance,Use of Upper Extremities Gait Assessment Gait Gait Assistance Required: Standby Assistance Distance (Feet) 120 Assistive Devices Assistive Device Gait Belt,Front Wheeled Walker Orthotic/Prosthetic Devices or Brace: No Gait Deviations General Gait Pattern Decreased Stride Length, Decreased Feet Clearance, Lateral Trunk Lean,Step-to Gait Factors Limiting Gait Function Factors Limiting Gait Function Decreased Activity Tolerance, Decreased Strength,Limited Range of Motion,Pain,Poor Balance,Poor Safety Awareness Comments Gait Comments PT transfer to bed with all needs in reach, alarm and SCD on. Stair Climbing Assessment Evaluation Level of Assist On Stairs Contact Guard Assistance Devices Stair Climbing Assistive Devices Left Railing,Right Railing Technique/Endurance Stair Climbing Direction Ascend and Descend Stair Climbing Technique Step to Step Number of Steps Climbed 3 Stair Climbing Set # Repetitions (reps) 1 M5 PT-IP Objective Assessments Start: 12/05/18 08:19 Freq: NEEDED Status: Active Protocol: Document 12/05/18 09:05 (Rec: 12/05/18 11:04 [id number]) Orientation Orientation/Cognition Level of Alertness Alert Orientation Name,Age,Birthday,Month,Date, Year,Day of Week,Place, Situation Language Function Ability No Deficits Noted Memory Description No Deficits Noted Gross Range of Motion Upper Extremity ROM Assessment Within Functional Limits Lower Extremity ROM Assessment Left Impaired Impairments L knee AROM 4- 95 degrees Strength Upper Extremity Strength Assessment Within Functional Limits Lower Extremity Strength Assessment Left Impaired Hip 4+/5 Knee 4-/5 Coordination Assessment Gross Coordination Gross Coordination WNL Sensation Assessment Sensation Gross Sensation WNL Muscle Tone Muscle Tone WNL Yes M6 PT-IP Treatment Start: 12/05/18 08:19 Freq: NEEDED Status: Active Protocol: Document 12/05/18 14:50 GGD (Rec: 12/05/18 16:09 GGD [id number]) Physical Therapy Treatment Exercises Exercises Ankle Pumps,Quad Sets,Heel Slides,Straight Leg Raises, Seated Knee Flexion/Extension M7 PT-IP Assessment and Plan Start: 12/05/18 08:19 Freq: NEEDED Status: Active Protocol: Document 12/05/18 14:50 GGD (Rec: 12/05/18 16:09 GGD [id number]) PT Summary Assessment and Plan Summary Assessment Summary Pt improving with mobility. She able to progress gait distance. She need B rails for stair mobility. Pt needed increase in UE support for sit to stand from lower height. Frequency of Treatment Frequency Of Treatment Twice a Day Treatment Plan Physical Therapy Treatment Plan Bed Mobility Training,Transfer Training,Gait Training, Therapeutic Exercise,Balance Retraining,Post Op Education, Discharge Planning,Hot or Cold Pack,Neuromuscular Re-ed Other Recommendations and Next Treatment stair climbing 11 steps in Focus total CG trainining for pt handling transfers and gait traininga s virgil Recommendations To Nursing Amount of Assist Needed Standby Assistance Discharge Recommendations PT Discharge Recommendations Home with Assistance, Outpatient PT
--- NOTE | 2018-12-05 15:45 | PC.NURSE ---
Patient back to bed after being up in chair for most of the morning. Patient is A/O x4, denies SOB or chest pain today. C/O pain in LLE at incision site. TKA site dsg is CDI, no swelling, redness, or streaking noted. Patient denies numbness or tingling in LLE. Bilateral distal pulses equal and intact. Call light in reach, family at bedside.
--- NOTE | 2018-12-05 15:52 | CM.DANOTE ---
Discharge Planning/Care Management DCP assessment: case received, EMR reviewed and met with pt. Introduced self and role. Pt is a 78 year old female who admitted yesterday for a planned L TKA. Payer: Medicare breonna Dill PCP: Shireen Peterson Surgeon: Dr. Yan. PT worked for the first time today with PT and is making progress toward her plan for a d/c to home setting and OUTPT PT. She confirms that her , who is retired, can help her as can her daughter Yajaira who lives closeby. She notes she is surprised by the level of pain; hopes to do better in therapy tomorrow. P: home when stable but will follow up prn to make sure this remains doable. INPT admission status: confirmed by UR MACHO Domínguez CM Discharge Assessment Start: 12/05/18 15:50 Freq: Status: Active Protocol: Document 12/05/18 15:50 ITV (Rec: 12/05/18 15:52 ITV [id number]) Discharge Planning Assessment Advance Directives? No Advance Directives on File No History Provided By Patient,Medical Record Prior Living Arrangements House Household Members spouse Independent with ADL's Yes Is patient alert and oriented? Yes Patient/Family Preference OP PT Therapy Comment [place] [facility] [place] Info Assembly Whiteboard Updated in Patient Room with Yes name and ext. # of Early Childhood Review Status In Process Pre-Anesthesia Assessment Start: 11/22/18 13:56 Freq: Status: Complete Protocol: Document 11/22/18 13:56 CAB (Rec: 11/22/18 14:22 CAB [id number]) Pre-Anesthesia Assessment Patient Also Known As Voss (AKA) Patient Information Reviewed Via Phone Assessment Assessment Completed With Patient Diagnostic Results BMP/CMP,CBC,EKG,Urinalysis Comment Outside labs/EKG scanned to record Primary Care Provider Nathaniel Peterson Seen Specialist in Last 12 Months Yes Specialist Seen Orthopedist Primary Language Lao Preferred Language Lao Separator Operator Required No Height 168.91 cm Weight 72.575 kg Body Mass Index (BMI) 25.4 Hearing Ability Normal Visual Assist Glasses Dentition Type Teeth, Natural Present,Teeth, Missing,Dental Implants Barriers to Learning None Other Aids No Hx Anesthesia Reactions No Hx Family Anesthesia Reaction No Hx Malignant Hyperthermia No Hx Blood Transfusions No Hx Blood Transfusion Reaction No Anesthesia Review Requested No Sleeve Setter Lockstitch No alcohol intake current alcohol intake frequency holidays/special occasions only Smoking Status Never smoker Substance Use Type does not use Pain Present Pain Reported Musculoskeletal Symptoms Abnormal Gait,Back Pain, Difficulty Walking,Joint Pain, Radiating Pain into Limb History of Falling (Recent or History of No ) Patient is completely paralyzed or No completely immobile Mental Status Oriented to own ability Is patient on oxygen? No Does patient have PEGUERO/SOB Yes: r/t COPD Hx Sleep Apnea No CPAP/BIPAP use not prescribed Currently Taking a Beta Tariq No Can You Climb a Flight of Stairs Without No SOB Hx Chest Pain No Hx SOB Yes: r/t COPD Hx Syncope or Dizziness No Anti-Coagulant Therapy No Has a Credit Analyst No Cardiac Testing No Hx Pacemaker/ICD No Cardiac Clearance Received Not Applicable Diet Type At Home Regular dysphagia No Urinary Catheter Present No Hx Urinary Self Catheterization No Diabetes No Patient No Lactating No Hx Drug Resistant Organism No Presence of External or Internal Medical No Devices Have you traveled outside the [facility] in the last 30 days? Marital Status Lives With spouse,children Prior Living Arrangements House Number of Floors (Floors) Two Floors Support System Child/Children,Spouse Patient Discharge Plan Description Return Home Feels Safe in Current Environment Yes Been Physically Hurt or Threatened By a No Person in Current Environment Do you have thoughts of harming yourself None or others? Are you currently considering suicide? No Do you have a plan to hurt yourself or No Plan others? Do You Have Any Spiritual Beliefs That No May Affect Your HC Choices? Do You Have Any Cultural Practices That No May Affect Your HC Choices? Comment Sikh Who Can We Speak to About Patient's Care Family, friends Identifying Code for Release of Patient Declines to issue Information Health Care Proxy/Next of Kin Kevin () or Yajaira ( daughter) Health Care Proxy Phone Number Kevin: [phone], Yajaira: [phone] Emergency Contact Name Kevin () or Yajaira ( daughter) Emergency Contact Phone Number Kevin: [phone], Yajaira: Advance Directives? No: Declines further information Advance Directives on File No Power of Armature And Rotor Winder Yes Power of Armature And Rotor Winder Name Kevin () Power of Armature And Rotor Winder PAC Instructions Durable medical equipment, Medications to take/avoid, Nasal antibiotic,No ETOH/ petroleum product on skin DOS, NPO,Pre-surgical wash,Sturdy shoes/comfortable clothes,Do not bring valuables and remove jewelry
[2018-12-06 02:20] VITALS: BP 141/70; PULSE 71; RESP 21; TEMP 37.3; O2SAT 95
[2018-12-06] MEDS: ONDANSETRON 4 MG ODT PO (02:30)
[2018-12-06] MEDS: HYDROMORPHONE 0.5 MG INJ IV (02:30)
[2018-12-06] MEDS: SODIUM CHLORIDE 0.9% FLUSH 10 ML IV ×2 (02:31→08:23)
--- NOTE | 2018-12-06 02:36 | PC.NURSE ---
Addendum entered by Shanika Beltran R.N. 12/06/18 02:53: Patient tearful; states she is just anxious. Reports hx of anxiety attacks, but it's been along time. Discussed with patient reasons for anxiety: Oxycodone making her stomach upset and feeling like she is not going to be ready to go home today. Reassured that pain medication can be changed in a.m. and if she needs additional pain medication this shift Dilaudid is available. Also reassured that if she is not mobilizing well it is probable she will not be discharging today and may be able to stay longer vs SNF. Patient expressed appreciation for reassurances. Original Note: Patient asleep since shift change, now awakened for VS and assessment. Is alert and oriented. Breath sounds CTA with RA sat of 95%. HRR. BP elevated at 141/70 which is higher than what she has been running since surgery but states she does have hx of HTN and is on antihypertensive med; will continue to monitor. BT present and is passing flatus. Denies dysuria, frequency or urgency. Able to move self in bed and ambulated with walker and 1 assist when out of bed. After being up to bathroom states pain in knee is 8/10 and is feeling nauseated. Does not want to take Oxycodone stating it causes stomach to be upset even when taken with food so medicated with IV Dilaudid and given Zofran ODT for the nausea; no emesis. Ice applied to knee for additional pain relief. Aquacel + kurtis wrap to left LE is CDI. CMS is intact. Still with weakness in left LE; able to lift leg slightly off bed. Wearing bilateral SCD's. Fall risk score is high and bed alarm is activated.
[2018-12-06 06:43] VITALS: BP 124/58; PULSE 91; RESP 18; TEMP 37.1; O2SAT 95
--- NOTE | 2018-12-06 07:10 | PM.DS.1 ---
History of Present Illness History of Present Illness Date Patient Seen: 12/06/18 Time Patient Seen: 07:11 Chief complaint: [id number] Narrative: The history and physical are contained in the chart and previously completed note. Please refer to that note for this information. Discharge Providers Provider Date of admission: 12/04/18 11:02 Discharge Date: 12/06/18 Primary care physician: Nathaniel Peterson MD Consults: 12/04/18 16:24 Consult to Discharge Planning Routine Comment: Consult to Physical Therapy Evaluate & Treat Comment: Physician Instructions: postop TKA protocol Discharge provider: Skyler Yan MD Summary Hospital Course Discharge Diagnosis: 1. Left knee osteoarthritis 2. Post hemorrhagic anemia Hospital Course: The patient was admitted to the hospital and taken directly to the operating room on December 04, 2018. She underwent a left total knee replacement without difficulty. She initially had a very favorable postoperative course however on postoperative day 2 her block had worn off and she had significant pain control issues as well as some nausea with her pain medication. At the time of this dictation we are addressing these issues and plan to discharge her later in the day. It is possible that this will need to be held until tomorrow if she does not make enough progress. Status at Discharge Cognitive/behavioral status at discharge: oriented Functional status at discharge: uses cane/walker Overall status at discharge: patient is progressing back to baseline Time Spent with Patient Time spent: Less than 30 minutes Exam Vital Signs (past 8 hours): - 12/06/18 02:20 12/06/18 06:43 Temperature 99.1 F 98.7 F Pulse Rate 71 91 H Respiratory Rate 21 18 Blood Pressure 141/70 H 124/58 L Pulse Oximetry 95 95 Fraction of Inspired Oxygen 21 Oxygen Delivery Method Room Air Oxygen Flow Rate 0 Narrative Exam Narrative: Left knee wound is dressed with no drainage on the bandage. Calf is soft. Light touch and motion are intact in the left lower extremity. Objective Labs Result Diagrams: 12/05/18 06:31 Discharge Plan Discharge Plan Patient Disposition: Home Discharge Med Rec/Prescriptions Prescriptions: New hydrocodone-acetaminophen 5-325 mg Tablet 1 tab PO Q4HR PRN (Reason: Pain, Moderate (4-6)) Qty: 40 RF: 0 aspirin 81 mg Tablet,Delayed Release (Dr/Ec) 81 mg PO BID 42 Days Qty: 84 RF: 0 Continued cholecalciferol (vitamin D3) [Vitamin D3] 5,000 unit Tablet 5,000 unit PO DAILY Qty: 0 RF: 0 ascorbic acid (vitamin C) [Vitamin C] 500 mg Tablet 500 mg PO DAILY Qty: 0 RF: 0 coenzyme Q10 [CoQ-10] 100 mg Capsule 100 mg PO DAILY Qty: 0 RF: 0 red yeast rice 1,200 mg PO BID Qty: 0 RF: 0 bee pollen 550 mg Capsule 1,000 mg PO DIRECTED Qty: 0 RF: 0 naproxen sodium [Aleve] 220 MG tablet 220 mg PO BIDCC Qty: 0 RF: 0 omega 0-knw-qps-fish oil 300-1,000 mg Capsule 1 cap PO TID Qty: 0 RF: 0 [THYROSOL] 1 tab PO BID Qty: 0 RF: 0 acyclovir 400 mg tablet 400 mg PO Q8H PRN (Reason: outbreak) Qty: 15 RF: 2 triamterene-hydrochlorothiazid 37.5-25 mg tablet See Rx Instructions .ROUTE .COMPLEX Qty: 90 RF: 1 albuterol sulfate [Ventolin HFA] 90 MCG/PUFF HFA aerosol inhaler 1 puff INH Q4HP PRN (Reason: Shortness Of Breath) RF: 0 docusate sodium 100 mg Capsule 100 mg PO BID PRN (Reason: constipation) Qty: 40 RF: 0 Follow up/Referrals: Nathaniel Peterson MD [Primary Care Provider] - Skyler Yan MD [Physician] - 2 Weeks Provider Discharge Instructions Diet: Diet as Tolerated and Regular Activity: You may bear weight as tolerated on your left leg. Cold/Heat Therapy: Apply ice for 15 minutes of every hour to the left knee as needed for pain control. Skin/Wound/Dressing Care Report to your healthcare provider any signs of infection, such as:: chills, fever, night sweats, increased pain, unusual drainage and unusual redness Dressing: You may remove the Damien wrap and keep it off 3 days after surgery. Keep the deeper dressing in place until your follow-up. You may shower with the deeper dressing in place. If the center strip of the deeper dressing becomes saturated with either water or blood please call the office. Visit Report/Discharge Packet Instructions: DI for Knee Replacement Stand Alone Forms: Surgery Discharge Discharge Data Primary Care Provider: Creelman,Nathaniel Quality VTE Deep Vein Thrombosis/Pulmonary Embolism Present on Admission: No
[2018-12-06 07:40] VITALS: BP 137/54; PULSE 90; RESP 16; TEMP 37.2; O2SAT 92
[2018-12-06] MEDS: MELOXICAM 7.5 MG TABLET 15 MG PO (08:22)
[2018-12-06] MEDS: ACETAMINOPHEN 325 MG TABLET 975 MG PO (08:22)
[2018-12-06] MEDS: TRIAMTERENE/HCTZ 37.5/25 TABLET 1 CAP PO (08:23)
[2018-12-06] MEDS: ASPIRIN EC 81 MG TABLET PO (08:23)
[2018-12-06 08:53] VITALS: PULSE 75; RESP 14; O2SAT 96
[2018-12-06] MEDS: HYDROCODONE/ACET 5/325 TABLET 1 TAB PO (09:05)
--- NOTE | 2018-12-06 09:35 | PT.IPTN ---
Current Diagnoses Unilateral primary osteoarthritis, left knee (12/05/18) Surgery Performed Operation Date: 12/04/18 13:15 Actual Procedures p Total Knee Arthroplasty(Left) - Skyler Yan MD Physical Therapy Treatment Note M3 PT-IP Subjective Start: 12/05/18 08:19 Freq: NEEDED Status: Discharge Protocol: Document 12/06/18 09:35 GGD (Rec: 12/06/18 13:05 GGD [email or web address]) Subjective Physical Therapy Visit Type Type Treatment Note Visit Start Time 09:12 Visit Stop Time 09:35 Total Visit Minutes 23 Number of SPORTS TEAM MANAGER Visits 2 Physical Therapy Visit Comments Patient Comments Pt states she having trouble lifting her leg. Therapy Pain Assessment Pain When Pain Assessed During Mobility Pain Present Pain Present Pain Reported M4 PT-IP Mobility and Gait Start: 12/05/18 08:19 Freq: NEEDED Status: Discharge Protocol: Document 12/06/18 09:35 GGD (Rec: 12/06/18 13:05 GGD [email or web address]) PT-Bed Mobility Assessment Sit to Supine Sit to Supine Minimal Assistance,1 Person Assistance PT-Transfer Assessment Sit to and From Stand Sit to and from Stand Contact Guard Assistance Equipment Transfer Assistive Device Gait Belt,Front Wheeled Walker Orthotic/Prosthetic Devices or Brace: No Transfers Transfer Destination Bed Transfer Technique Stand Step Pivot Transfer Ability Level of Assist Contact Guard Assistance, Minimal Assistance,Use of Upper Extremities Comments Mobility Comments Pt needed min A with left LE. was able to assist. Gait Assessment Gait Gait Assistance Required: Standby Assistance Distance (Feet) 100 Assistive Devices Assistive Device Gait Belt,Front Wheeled Walker Orthotic/Prosthetic Devices or Brace: No Gait Deviations General Gait Pattern Decreased Stride Length, Decreased Feet Clearance, Lateral Trunk Lean,Step-to Gait Factors Limiting Gait Function Factors Limiting Gait Function Decreased Activity Tolerance, Decreased Strength,Limited Range of Motion,Pain,Poor Balance,Poor Safety Awareness Comments Gait Comments PT transfer to bed with all needs in reach, alarm on. Stair Climbing Assessment Evaluation Level of Assist On Stairs Standby Assistance Devices Stair Climbing Assistive Devices Left Railing,Right Railing Technique/Endurance Stair Climbing Direction Ascend and Descend Stair Climbing Technique Step to Step Number of Steps Climbed 3 Stair Climbing Set # Repetitions (reps) 1 M6 PT-IP Treatment Start: 12/05/18 08:19 Freq: NEEDED Status: Discharge Protocol: Document 12/06/18 09:35 GGD (Rec: 12/06/18 13:05 GGD [email or web address]) Physical Therapy Treatment Exercises Exercises Ankle Pumps,Quad Sets,Heel Slides,Seated Knee Flexion/ Extension M7 PT-IP Assessment and Plan Start: 12/05/18 08:19 Freq: NEEDED Status: Discharge Protocol: Document 12/06/18 09:35 GGD (Rec: 12/06/18 13:05 GGD [email or web address]) PT Summary Assessment and Plan Summary Assessment Summary Pt safe with all mobility. She did need assist with lifting LE. She was safe and stable with stair mobility. Pt safe for home D/C when medically stable. Frequency of Treatment Frequency Of Treatment Twice a Day Treatment Plan Physical Therapy Treatment Plan Bed Mobility Training,Transfer Training,Gait Training, Therapeutic Exercise,Balance Retraining,Post Op Education, Discharge Planning,Hot or Cold Pack,Neuromuscular Re-ed Recommendations To Nursing Amount of Assist Needed Standby Assistance Discharge Recommendations PT Discharge Recommendations Home with Assistance, Outpatient PT
--- NOTE | 2018-12-06 11:29 | PC.NURSE ---
Patient educated on medication, post-op care, activity and follow up care. Patient verbalizes understanding of teaching. Patient D/C'd and transferred in chair.
== END 2018-12-06 11:25 | disposition home or self-care (01) ==
LOC: AC 12-06 10:35 → OR 12-06 12:37 → AC 12-06 12:39 → OR 12-06 12:39
PROVIDERS: Admitting Provider Orthopaedic Surgery; Family Provider Family Medicine; PCP Family Medicine; Visit Provider Orthopaedic Surgery
PROC: 0SRD0JZ Replacement of Left Knee Joint with Synthetic Substitute, Open Approach (ICD-10-PCS; CPT 27447; principal; 2018-12-04 13:15)
DX: M17.12 Unilateral primary osteoarthritis, left knee (principal); I10 Essential (primary) hypertension; J44.9 Chronic obstructive pulmonary disease, unspecified
CPT/HCPCS: 27447; 36415; 73560; 85014; 85018; 94760; 94762; 97116; 97161; 97530; C1776; G0378; C9290; J0690; J1100; J1170; J2250; J2270; J2274; J2405; J2704; J3010

== ENCOUNTER 2021-02-14 11:19 | Observation (INO) | payer MEDICARE, OTHER, SELFPAY ==
[2018-12-04 17:23] VITALS: BMI 25.4
[2021-02-14] VITALS (18 sets, daily range): BP systolic 149–211; BP diastolic 61–88; PULSE 59–89; RESP 12–19; TEMP 36.8–37.1; O2SAT 94–99; BMI 30.9
--- NOTE | 2021-02-14 11:50 | ED_ITS ---
HPI - General Adult General Chief complaint: Upper Respiratory Symptoms Stated complaint: DRY HEAVING, VERY WEAK, SO SICK Time Seen by Provider: 02/14/21 11:50 History of Present Illness HPI narrative: 81-year-old woman with hypothyroidism and hypertension on hydrochlorothiazide presents on day 10 of COVID symptoms with severe weakness. She 1st started feeling ill on 02/04. She is not vaccinated. She had been doing well until approximately 4 days prior to admission when she began having increasing nausea vomiting eventually dry heaves that have continued. She is slightly better after IV Zofran given by medics prior to arrival. She has had some minor diarrhea over the last week. From a respiratory standpoint cough and dyspnea have resolved. She has not been febrile for over a week. She does not complain of headache but simply overall global weakness. Related Data Home Medications Medication Instructions Recorded Confirmed [THYROSOL] 1 tab PO BID #0 04/06/16 12/04/18 ascorbic acid (vitamin C) 500 mg 500 mg PO DAILY #0 04/06/16 11/22/18 tablet (Vitamin C) bee pollen 550 mg capsule 1,000 mg PO DIRECTED #0 04/06/16 11/22/18 cholecalciferol (vitamin D3) 125 5,000 unit PO DAILY #0 04/06/16 11/22/18 mcg (5,000 unit) tablet (Vitamin D3) coenzyme Q10 100 mg capsule 100 mg PO DAILY #0 04/06/16 11/22/18 (CoQ-10) naproxen sodium 220 mg tablet 220 mg PO BIDCC #0 04/06/16 11/22/18 (Aleve) omega 7-dml-wwb-fish oil 300 1 cap PO TID #0 04/06/16 11/22/18 mg-1,000 mg capsule red yeast rice 1,200 mg PO BID #0 04/06/16 11/22/18 albuterol sulfate 90 mcg/actuation 1 puff INH Q4HP PRN 06/05/18 12/04/18 aerosol inhaler (Ventolin HFA) Previous Rx's Medication Instructions Recorded acyclovir 400 mg tablet 400 mg PO Q8H PRN #15 tab 04/03/18 docusate sodium 100 mg capsule 100 mg PO BID PRN #40 cap 06/22/18 triamterene 37.5 See Rx Instructions .ROUTE 11/21/18 mg-hydrochlorothiazide 25 mg tablet .COMPLEX #90 tablet hydrocodone 5 mg-acetaminophen 325 1 tab PO Q4HR PRN #40 tab 12/06/18 mg tablet Allergies Allergy/AdvReac Type Severity Reaction Status Date / Time ibandronate sodium Allergy Severe Swelling Verified 02/14/21 11:58 [From [place]] of Lip/Tongue/Throat Review of Systems Review of Systems Narrative: Remainder of complete review of systems is otherwise unremarkable except for that included in the HPI. Patient History Medical History Anxiety Back pain Bowel obstruction Chronic obstructive pulmonary disease (05/20/16) Colon obstruction (1974) Essential hypertension (04/01/16) Eustachian tube dysfunction Numbness and tingling Osteopenia Pneumonia (~06/2017) Pure hypercholesterolemia (04/01/16) Restrictive lung disease (04/05/17) Rheumatoid arthritis (04/11/16) Sciatica Surgical History History of bilateral carpal tunnel release Hx of appendectomy (1974) Hx of arthroscopy of right knee Hx of cholecystectomy (04/11/18) Hx of dilation and curettage Hx of tonsillectomy S/P lumbar fusion (06/19/18) Status post bilateral cataract extraction Status post delivery (1968) Family History Mother Hypertension Father No problems noted. Sister Cancer Social History household members: spouse Smoking Status: Never smoker second hand exposure: No alcohol intake: current substance use type: does not use Smoking Status: Never smoker alcohol intake frequency: holidays/special occasions only Substance Use Type: does not use Exam Narrative Exam Narrative: General: Frail appearing but in no acute distress. Able to give a complete and coherent history. HEENT: Moist mucous membranes, normal sclera with reactive pupils, Neck: No JVD, supple Respiratory: Lungs are clear to auscultation, no wheezing no rales no rhonchi. Full and symmetrical air movement Cardiac: Regular rate and rhythm no murmurs no bruits Abdomen: Soft, nontender, good bowel tones, no flank pain Skin: Warm and dry, no rashes Neurologic: Globally weak but Grossly neurologically intact with no obvious asymmetries or abnormalities Extremities: No trauma, well perfused Psych: Cooperative, appropriate insight and affect Initial Vital Signs Initial Vital Signs: Vital Signs Temperature 98.8 F 02/14/21 11:58 Pulse Rate 79 02/14/21 11:58 Respiratory Rate 18 02/14/21 11:58 Blood Pressure 194/88 H 02/14/21 11:58 Pulse Oximetry 98 02/14/21 11:58 Course Orders Ordered: ED Orders 02/14/21 11:52 XR chest 1V Stat EKG-12 Lead Stat 02/14/21 12:18 COVID19 - ADMIT ([facility] [employer] swab/PCR) Stat Complete Blood Count AUTO DIFF Stat Comprehensive Metabolic Panel Stat D Dimer Stat Lactate (Lactic Acid) Stat Lipase Stat Magnesium Stat NT-proBNP (BNP-Adult 18+) Stat Troponin I Stat 02/14/21 13:30 Blood Culture Stat POTASSIUM CHLORIDE IN WATER (Potassium Cl 10 Meq/100 Ml Hilda) 10 meq in 100 mls @ 100 mls/hr IV Q1H PARESH Stop: 02/14/21 22:29 Last Admin: 02/14/21 14:39 Dose: 100 mls/hr Documented by: NOEMIYLRICHARDSON Discontinued Medications Sodium Chloride (Normal Saline 0.9%) 1,000 mls @ 1,000 mls/hr IV BOLUS ONE Stop: 02/14/21 12:50 Last Infusion: 02/14/21 13:51 Dose: 0 mls/hr Documented by: Admin: 02/14/21 12:32 Dose: 1,000 mls/hr Documented by: NOEMIYLOR Lorazepam (Lorazepam 2 Mg/Ml Inj) 0.5 mg IV NOW ONE Stop: 02/14/21 14:17 Last Admin: 02/14/21 14:39 Dose: 0.5 mg Documented by: NOEMIYLOR Ondansetron HCl (Ondansetron 4 Mg/2 Ml Inj) 4 mg IV NOW ONE Stop: 02/14/21 11:52 Last Admin: 02/14/21 12:32 Dose: 4 mg Documented by: ANDRE Vital Signs Vital signs: Vital Signs - 8 hr 02/14/21 11:58 Temperature 98.8 F Pulse Rate 79 Respiratory Rate 18 Blood Pressure 194/88 H Pulse Oximetry 98 Medical Decision Making Lab Data Result diagrams: 02/14/21 12:18 02/14/21 12:18 Labs: Lab Results 02/14/21 02/14/21 02/14/21 Range/Units 12:18 12:18 12:18 WBC 6.8 (4.5-11.0) X10^3/uL RBC 4.48 (4.0-5.2) X10^6/uL Hgb 13.5 (12.0-16.0) g/dL Hct 38.6 (36-46) % MCV 86.1 (80-100) fL MCH 30.2 (26-34) PG MCHC 35.1 (30-36) % RDW 14.8 (11.6-14.8) % Plt Count 217 (150-400) X10^3/uL Neut % (Auto) 72.9 (50-75) % Lymph % (Auto) 14.6 L (25-40) % [place] % (Auto) 10.9 (3-14) % Eos % (Auto) 0.4 L (2-4) % Baso % (Auto) 1.2 (0-2) % Neut # (Auto) 5000 (3061-6074) /uL Lymph # (Auto) 1000 L (5265-3767) /uL [place] # (Auto) 700 (0-900) /uL Eos # (Auto) 0 (0-450) /uL Baso # (Auto) 100 (0-100) /uL D-Dimer 413 H (<230) ng/mL Sodium 130 L (137-145) mmol/L Potassium 2.8 L (3.4-5.1) mmol/L Chloride 93 L (98-107) mmol/L Carbon Dioxide 28 (22-32) mmol/L BUN 8 (7-17) mg/dL Creatinine 0.56 (0.52-1.04) mg/dL Estimated GFR > 60.0 (>60) mL/min BUN/Creatinine Ratio 14.3 (6-22) Glucose 131 H (80-110) mg/dL Lactate (0.7-2.1) mmol/L Calcium 9.3 (8.4-10.2) mg/dL Magnesium 1.8 (1.6-2.3) mg/dL Total Bilirubin 0.8 (0.2-1.3) mg/dL AST 44 H (14-36) IU/L ALT 30 (<35) IU/L Alkaline Phosphatase 63 (38-126) U/L Troponin I < 0.012 (0.01-0.034) ng/mL NT-Pro-B Natriuret Pep 455 H (<450) pg/mL Total Protein 7.8 (6.3-8.2) g/dL Albumin 4.4 (3.5-5.0) g/dL Globulin 3.4 (1.7-4.1) g/dL Albumin/Globulin Ratio 1.3 (1.0-2.8) Lipase 241 (23-300) U/L SARS-CoV-2 (PCR) (Negative) 02/14/21 02/14/21 Range/Units 12:18 12:18 WBC (4.5-11.0) X10^3/uL RBC (4.0-5.2) X10^6/uL Hgb (12.0-16.0) g/dL Hct (36-46) % MCV (80-100) fL MCH (26-34) PG MCHC (30-36) % RDW (11.6-14.8) % Plt Count (150-400) X10^3/uL Neut % (Auto) (50-75) % Lymph % (Auto) (25-40) % [place] % (Auto) (3-14) % Eos % (Auto) (2-4) % Baso % (Auto) (0-2) % Neut # (Auto) (4066-2391) /uL Lymph # (Auto) (8719-7445) /uL [place] # (Auto) (0-900) /uL Eos # (Auto) (0-450) /uL Baso # (Auto) (0-100) /uL D-Dimer (<230) ng/mL Sodium (137-145) mmol/L Potassium (3.4-5.1) mmol/L Chloride (98-107) mmol/L Carbon Dioxide (22-32) mmol/L BUN (7-17) mg/dL Creatinine (0.52-1.04) mg/dL Estimated GFR (>60) mL/min BUN/Creatinine Ratio (6-22) Glucose (80-110) mg/dL Lactate 1.2 (0.7-2.1) mmol/L Calcium (8.4-10.2) mg/dL Magnesium (1.6-2.3) mg/dL Total Bilirubin (0.2-1.3) mg/dL AST (14-36) IU/L ALT (<35) IU/L Alkaline Phosphatase (38-126) U/L Troponin I (0.01-0.034) ng/mL NT-Pro-B Natriuret Pep (<450) pg/mL Total Protein (6.3-8.2) g/dL Albumin (3.5-5.0) g/dL Globulin (1.7-4.1) g/dL Albumin/Globulin Ratio (1.0-2.8) Lipase (23-300) U/L SARS-CoV-2 (PCR) Positive H (Negative) Imaging Data Chest x-ray: Radiologist's Impression: FINDINGS:? ? Surgical changes and devices:? None.? ? Lungs and pleura:? There is hyperinflation of the lungs with flattening of the hemidiaphragms compatible with COPD.? No definite acute airspace opacities.? There is an indistinct nodular opacity in the right lung base as well as peripheral indistinct opacities in the left lung base which appear similar to the prior studies.? No p leural effusions or pneumothorax.? ? Mediastinum:? Mediastinal contours appear unchanged.? Heart size is normal.? ? Bones and chest wall:? No suspicious bony lesions.? Overlying soft tissues appear unremarkable.? ? IMPRESSION:? ? 1. No definite radiographic evidence of pneumonia. ? 2. Findings compatible with COPD redemonstrated. ? 3. Bilateral scattered indistinct opacities appear similar to the prior studies and are consistent with scarring and pleural thickening seen on the prior CT. ? ? Dictated by: Bartolo Hightower M.D. on 02/14/2021 at 11:24? ?? [facility] Narrative Medical decision making narrative: 81-year-old woman with global weakness on day 10 of COVID infection with vomiting and diarrhea. Potassium at 2.8 and sodiumis 130.. Nausea has been controlled with IV Zofran however she still is unable to keep liquids down. Regarding her COVID infection, she is currently on day 10, oxygen saturations are 97% on room air, chest x-ray is minimally remarkable. There is no evidence of congestive heart failure or acute coronary syndrome. Would like to admit her for both her hypokalemia and hyponatremia in the setting of persistent continued nausea secondary to her COVID with subsequent weakness from her electrolyte abnormalities. Care is reviewed with the hospitalist and patient will be admitted. Discharge Plan Departure Patient Disposition: Admitted as Observation Clinical Impression: Acute hypokalemia, Acute hyponatremia, Weakness, Nausea and vomiting, COVID-19 Prescriptions: No Action cholecalciferol (vitamin D3) [Vitamin D3] 5,000 unit Tablet 5,000 unit PO DAILY Qty: 0 0RF ascorbic acid (vitamin C) [Vitamin C] 500 mg Tablet 500 mg PO DAILY Qty: 0 0RF coenzyme Q10 [CoQ-10] 100 mg Capsule 100 mg PO DAILY Qty: 0 0RF red yeast rice 1,200 mg PO BID Qty: 0 0RF bee pollen 550 mg Capsule 1,000 mg PO DIRECTED Qty: 0 0RF naproxen sodium [Aleve] 220 MG tablet 220 mg PO BIDCC Qty: 0 0RF omega 6-rup-fcj-fish oil 300-1,000 mg Capsule 1 cap PO TID Qty: 0 0RF [THYROSOL] 1 tab PO BID Qty: 0 0RF acyclovir 400 mg tablet 400 mg PO Q8H PRN (Reason: outbreak) Qty: 15 2RF triamterene-hydrochlorothiazid 37.5-25 mg tablet See Rx Instructions .ROUTE .COMPLEX Qty: 90 1RF Dose Instruction: TAKE 1 TABLET BY MOUTH ONCE DAILY Rx Instructions: TAKE 1 TABLET BY MOUTH ONCE DAILY PT WILL NEED TO BE SEEN BEFORE NEXT RENEWAL albuterol sulfate [Ventolin HFA] 90 MCG/PUFF HFA aerosol inhaler 1 puff INH Q4HP PRN (Reason: Shortness Of Breath) 0RF docusate sodium 100 mg Capsule 100 mg PO BID PRN (Reason: constipation) Qty: 40 0RF hydrocodone-acetaminophen 5-325 mg Tablet 1 tab PO Q4HR PRN (Reason: Pain, Moderate (4-6)) Qty: 40 0RF Referrals: Zora Ballesteros ARNP [Primary Care Provider] -
--- NOTE | 2021-02-14 11:52 | DI.RAD.S_ITS ---
PROCEDURE: XR CHEST 1V INDICATIONS: worsening sx, + covid TECHNIQUE: One view of the chest was acquired. COMPARISON: [facility], CT, CHEST W/O CONTRAST, 02/07/2011, 9:01. [facility], CR, CHEST 2VW, 03/15/2012, 9:52. [facility], CR, CHEST 2 VIEW, 04/01/2016, 10:40. FINDINGS: Surgical changes and devices: None. Lungs and pleura: There is hyperinflation of the lungs with flattening of the hemidiaphragms compatible with COPD. No definite acute airspace opacities. There is an indistinct nodular opacity in the right lung base as well as peripheral indistinct opacities in the left lung base which appear similar to the prior studies. No pleural effusions or pneumothorax. Mediastinum: Mediastinal contours appear unchanged. Heart size is normal. Bones and chest wall: No suspicious bony lesions. Overlying soft tissues appear unremarkable. IMPRESSION: 1. No definite radiographic evidence of pneumonia. 2. Findings compatible with COPD redemonstrated. 3. Bilateral scattered indistinct opacities appear similar to the prior studies and are consistent with scarring and pleural thickening seen on the prior CT. Dictated by: Bartolo Hightower M.D. on 02/14/2021 at 11:24 Approved by: Bartolo Hightower M.D. on 02/14/2021 at 11:26
[2021-02-14 12:31] LABS: Add Manual Diff / Slide Review NO; Basophils Absolute Auto 100 /uL (0-100); Basophils Percent Auto 1.2 % (0-2); Eosinophils Absolute Auto 0 /uL (0-450); Eosinophils Percent Auto 0.4 % (2-4); Hematocrit 38.6 % (36-46); Hemoglobin 13.5 g/dL (12.0-16.0); Lymphocytes Absolute Auto 1000 /uL (1100-4500); Lymphocytes Percent Auto 14.6 % (25-40); Mean Corpuscular HGB Conc 35.1 % (30-36); Mean Corpuscular Hemoglobin 30.2 PG (26-34); Mean Corpuscular Volume 86.1 fL (80-100); Monocytes Absolute Auto 700 /uL (0-900); Monocytes Percent Auto 10.9 % (3-14); Neutrophils Absolute Auto 5000 /uL (1500-7000); Neutrophils Percent Auto 72.9 % (50-75); Platelet Count 217 X10^3/uL (150-400); Red Blood Cell Count 4.48 X10^6/uL (4.0-5.2); Red Cell Distribution Width 14.8 % (11.6-14.8); White Blood Cell Count 6.8 X10^3/uL (4.5-11.0)
[2021-02-14] MEDS: ONDANSETRON 4 MG/2 ML INJ IV (12:32)
[2021-02-14] MEDS: SODIUM CHLORIDE 0.9% 1,000 ML 1000 ML IV (12:32)
[2021-02-14 12:43] LABS: Alanine Aminotransferase 30 IU/L (<35); Albumin 4.4 g/dL (3.5-5.0); Albumin Globulin Ratio 1.3 (1.0-2.8); Alkaline Phosphatase 63 U/L (38-126); Aspartate Aminotransferase 44 IU/L (14-36); BUN Creatinine Ratio 14.3 (6-22); Bilirubin Total 0.8 mg/dL (0.2-1.3); Blood Urea Nitrogen 8 mg/dL (7-17); Calcium 9.3 mg/dL (8.4-10.2); Carbon Dioxide 28 mmol/L (22-32); Chloride 93 mmol/L (98-107); Estimated Glomerular Filt Rate > 60.0 mL/min (>60); Globulin 3.4 g/dL (1.7-4.1); Glucose 131 mg/dL (80-110); HEMOLYSIS < 15 (0-50); Lipase 241 U/L (23-300); Magnesium 1.8 mg/dL (1.6-2.3); Potassium 2.8 mmol/L (3.4-5.1); Sodium 130 mmol/L (137-145); Total Protein 7.8 g/dL (6.3-8.2)
[2021-02-14 12:44] LABS: Lactate (Lactic Acid) 1.2 mmol/L (0.7-2.1)
[2021-02-14 12:45] LABS: D Dimer 413 ng/mL (<230)
[2021-02-14 12:55] LABS: NT-proBNP (BNP-Adult 18+) 455 pg/mL (<450); Troponin I < 0.012 ng/mL (0.01-0.034)
[2021-02-14 13:42] LABS: COVID19 - ADMIT (NP swab/PCR) POSITIVE (Negative)
[2021-02-14] MEDS: LORazepam 2 MG/ML INJ 0.5 MG IV ×2 (14:39→20:38)
[2021-02-14] MEDS: POTASSIUM CHLORIDE IN WATER 10 MEQ/100 ML PIGGYBACK 100 MEQ IV ×4 (14:39→23:24)
[2021-02-14] MEDS: lisinopriL 20 MG TABLET PO (15:38)
--- NOTE | 2021-02-14 18:36 | P.HP_ITS ---
History of Present Illness History of Present Illness Chief complaint: DRY HEAVING, VERY WEAK, SO SICK Narrative: 81yo female with a hx of hypertension that presents with n/v and loose stools. Patient states that this started 10 days ago, on Thanksgiving. She was diagnosed with COVID-19 at that time. She believes she likely acquired it from family members who were visiting. The patient lives alone, [place], [place] she [place] with her extended family. She denies any respiratory complaints in that time, but endorses primarily GI complaints. She endorses non-bloody, non-bilious emesis, approximately 3-4 times per day, that started 4 days ago. However, in the last 1-2 days, she endorses only dry heaves. She also endorses 3-4 episodes of loose stools since that time, non-bloody, non-watery. The patient denies cough, SOB, CP, palpitations, fever/chills, weight loss. She endorses taking lisinopril and HCTZ at home, although she's missed a few doses due to the n/v. She endorses a remote tobacco smoking history, denies EtOH use or illicit drug use. She endorses undergoing a left knee replacement a few years ago. She denies any relevant family hx. She denies having any known drug allergies. Patient History Medical History Anxiety Back pain Bowel obstruction Chronic obstructive pulmonary disease (05/20/16) Colon obstruction (1974) Essential hypertension (04/01/16) Eustachian tube dysfunction Numbness and tingling Osteopenia Pneumonia (~06/2017) Pure hypercholesterolemia (04/01/16) Restrictive lung disease (04/05/17) Rheumatoid arthritis (04/11/16) Sciatica Surgical History History of bilateral carpal tunnel release Hx of appendectomy (1974) Hx of arthroscopy of right knee Hx of cholecystectomy (04/11/18) Hx of dilation and curettage Hx of tonsillectomy S/P lumbar fusion (06/19/18) Status post bilateral cataract extraction Status post delivery (1968) Family & Social History Family History Mother Hypertension Father No problems noted. Sister Cancer Social History: household members spouse Safety & Behavioral: Feels Safe in Current Yes Environment Been Physically Hurt or No Threatened By a Person Tobacco & Substance use: Smoking Status Never smoker alcohol intake current alcohol intake frequency 0-2 drinks per day Substance Use Type marijuana Meds Home Medications and Allergies Home Medications Medication Instructions Recorded Confirmed Type [THYROSOL] 1 tab PO BID #0 04/06/16 12/04/18 History ascorbic acid (vitamin C) 500 mg 500 mg PO DAILY #0 04/06/16 11/22/18 History tablet (Vitamin C) bee pollen 550 mg capsule 1,000 mg PO DIRECTED #0 04/06/16 11/22/18 History cholecalciferol (vitamin D3) 125 5,000 unit PO DAILY #0 04/06/16 11/22/18 History mcg (5,000 unit) tablet (Vitamin D3) coenzyme Q10 100 mg capsule 100 mg PO DAILY #0 04/06/16 11/22/18 History (CoQ-10) naproxen sodium 220 mg tablet 220 mg PO BIDCC #0 04/06/16 11/22/18 History (Aleve) omega 2-ujd-tjl-fish oil 300 1 cap PO TID #0 04/06/16 11/22/18 History mg-1,000 mg capsule red yeast rice 1,200 mg PO BID #0 04/06/16 11/22/18 History acyclovir 400 mg tablet 400 mg PO Q8H PRN #15 tab 04/03/18 11/22/18 Rx albuterol sulfate 90 mcg/actuation 1 puff INH Q4HP PRN 06/05/18 12/04/18 History aerosol inhaler (Ventolin HFA) docusate sodium 100 mg capsule 100 mg PO BID PRN #40 cap 06/22/18 12/04/18 Rx triamterene 37.5 See Rx Instructions .ROUTE 11/21/18 11/22/18 Rx mg-hydrochlorothiazide 25 mg tablet .COMPLEX #90 tablet hydrocodone 5 mg-acetaminophen 325 1 tab PO Q4HR PRN #40 tab 12/06/18 Rx mg tablet Allergies Allergy/AdvReac Type Severity Reaction Status Date / Time ibandronate sodium Allergy Severe Swelling Verified 02/14/21 11:58 [From [place]] of Lip/Tongue/Throat Review of Systems Constitutional Comments: Denies fever/chills, weight loss. Endorses appetite loss. Eyes Comments: Denies vision changes. Cardiovascular Comments: Denies CP, palpitations, peripheral edema. Respiratory Comments: Denies cough, SOB, URI symptoms. Gastrointestinal Comments: Endorses n/v, loose stools. Denies abd pain. Musculoskeletal Comments: Denies muscle aches. Exam Vital Signs (past 8 hours): - 02/14/21 11:58 02/14/21 12:00 02/14/21 12:30 Temperature 98.8 F Pulse Rate 79 77 70 Respiratory Rate 18 16 12 Blood Pressure 194/88 H 178/82 H 192/86 H Pulse Oximetry 98 99 97 02/14/21 13:00 02/14/21 13:30 02/14/21 14:00 Temperature Pulse Rate 76 89 74 Respiratory Rate 14 Blood Pressure 211/86 H 206/86 H 185/84 H Pulse Oximetry 97 97 97 02/14/21 14:30 02/14/21 15:00 02/14/21 15:30 Temperature Pulse Rate 69 76 67 Respiratory Rate Blood Pressure 187/80 H 179/81 H 170/76 H Pulse Oximetry 97 97 97 02/14/21 16:00 02/14/21 16:05 02/14/21 16:30 Temperature Pulse Rate 64 62 64 Respiratory Rate Blood Pressure 191/78 H 187/80 H Pulse Oximetry 95 95 97 02/14/21 17:00 02/14/21 17:01 02/14/21 17:30 Temperature Pulse Rate 60 59 L 66 Respiratory Rate Blood Pressure 161/71 H 166/75 H Pulse Oximetry 95 96 97 Oxygen Delivery Method Room Air Const Other: Patient laying in bed comfortably upon my entering the room, in no apparent acute distress. Eyes Other: No scleral icterus appreciated. Neck Other: No carotid bruits appreciated. Resp Other: Clear to auscultation bilaterally. Cardio Other: Regular rate and rhythm. S1 and S2 heart sounds normal, with no extra heart sounds or murmurs appreciated. No peripheral edema. GI Other: Soft, non-distended, non-tender. Bowel sounds present. Extrem Other: Palpable radial and dorsalis pedis pulses bilaterally. Objective Labs Result Diagrams: 02/14/21 12:18 02/14/21 12:18 Labs: Laboratory Results - last 24 hr 02/14/21 02/14/21 02/14/21 12:18 12:18 12:18 WBC 6.8 RBC 4.48 Hgb 13.5 Hct 38.6 MCV 86.1 MCH 30.2 MCHC 35.1 RDW 14.8 Plt Count 217 Neut % (Auto) 72.9 Lymph % (Auto) 14.6 L [place] % (Auto) 10.9 Eos % (Auto) 0.4 L Baso % (Auto) 1.2 Neut # (Auto) 5000 Lymph # (Auto) 1000 L [place] # (Auto) 700 Eos # (Auto) 0 Baso # (Auto) 100 D-Dimer 413 H Sodium 130 L Potassium 2.8 L Chloride 93 L Carbon Dioxide 28 BUN 8 Creatinine 0.56 Estimated GFR > 60.0 BUN/Creatinine Ratio 14.3 Glucose 131 H Lactate Calcium 9.3 Magnesium 1.8 Total Bilirubin 0.8 AST 44 H ALT 30 Alkaline Phosphatase 63 Troponin I < 0.012 NT-Pro-B Natriuret Pep 455 H Total Protein 7.8 Albumin 4.4 Globulin 3.4 Albumin/Globulin Ratio 1.3 Lipase 241 SARS-CoV-2 (PCR) 02/14/21 02/14/21 12:18 12:18 WBC RBC Hgb Hct MCV MCH MCHC RDW Plt Count Neut % (Auto) Lymph % (Auto) [place] % (Auto) Eos % (Auto) Baso % (Auto) Neut # (Auto) Lymph # (Auto) [place] # (Auto) Eos # (Auto) Baso # (Auto) D-Dimer Sodium Potassium Chloride Carbon Dioxide BUN Creatinine Estimated GFR BUN/Creatinine Ratio Glucose Lactate 1.2 Calcium Magnesium Total Bilirubin AST ALT Alkaline Phosphatase Troponin I NT-Pro-B Natriuret Pep Total Protein Albumin Globulin Albumin/Globulin Ratio Lipase SARS-CoV-2 (PCR) Positive H Assessment & Plan Assessment & Plan narrative: Assessment 1. Hypokalemia, likely due to GI losses 2. Nausea/vomiting/diarrhea, likely due to COVID-19 infection 3. COVID-19 infection, non-severe 4. Hypertension Plan: 1. Replacing K. Will combine IV, PO methods, once nausea subsides sufficiently. Telemetry on-board. 2. IV Zofran on-board for nausea. Loose stools are not concering for C. diff. Will continue symptomatic control 3. Patient endorses testing positive on . Endorses receiving monoclonal antibody infusion outpatient, does not recall which agent it was. There does not appear to be a respiratory component to her COVID-19 infection. 4. On lisinopril 20 mg once daily and HCTZ 25 mg once daily at home. Can likely increase the lisinopril dose. This will help with her low K, too. Will hold HCTZ for now, and likely on discharge, too, as this can worsen her hypokalemia. VTE prophylaxis: Lovenox 40 mg once daily Disposition: Observation overnight, likely discharge tomorrow Time Spent With Patient Critical Care time: I spent a total of [] minutes of critical care time on this patient's care today; this time is exclusive of procedural time. Quality MIPS - Admit I confirm the patient?s Advance Care Plan is present, Code status is documented, Surrogate decision maker is in patient?s record [If Yes, STOP here]: Yes
[2021-02-14] MEDS: POTASSIUM CHLORIDE IN WATER 10 MEQ/100 ML PIGGYBACK 75 MEQ IV ×2 (19:45→21:46)
--- NOTE | 2021-02-14 21:36 | PC.NURSE ---
Addendum entered by Alethea Bryson R.N. 02/15/21 05:22: Potassium infusions finally complete ~0515. Arch Support Maker drawing morning labs at that time. Addendum entered by Alethea Bryson R.N. 02/15/21 01:10: Pt tolerating potassium infusion poorly, with sharp, burning pain up her arm. Having to infuse it slowly and with concurrent normal saline. Addendum entered by Alethea Bryson R.N. 02/14/21 23:42: Pt is COVID +. Adhered to special droplet/contact precautions. Pt oriented to room and call light; instructed to call for help when needing to get OOB. Received phone call from pt's son; updated him on status and POC. He wanted his to be able to spend the night with the patient and questioned our visitor policy. I explained that non-Covid inpatients are allowed to have one visitor per admission, but Covid patients are the exception. He seemed to think that visitor and support person were two different roles; I explained that they were one and the same. He continued to argue that our policy states differently, so I offered to transfer him to the coordinator. Unfortunately, the [facility] fielded the call and had a similar experience. She referred him to administration. Original Note: Pt arrived from ED approximately 1930. Ambulatory. A&Ox4, VSS. Denies nausea but says she still feels a little queasy. Tolerating PO intake. Ambulatory to bathroom with standby assist. Potassium rider infusing. Pt. feeling somewhat anxious, requests Ativan.
[2021-02-15] VITALS: BP 125/68; PULSE 79; RESP 19; TEMP 36.6; O2SAT 99
[2021-02-15] MEDS: POTASSIUM CHLORIDE IN WATER 10 MEQ/100 ML PIGGYBACK 75 MEQ IV ×2 (01:48→03:46)
[2021-02-15 04:00] VITALS: BP 150/77; PULSE 87; RESP 18; TEMP 36.7; O2SAT 95
[2021-02-15 05:40] LABS: BUN Creatinine Ratio 7.8 (6-22); Blood Urea Nitrogen 5 mg/dL (7-17); Calcium 8.3 mg/dL (8.4-10.2); Carbon Dioxide 29 mmol/L (22-32); Chloride 103 mmol/L (98-107); Estimated Glomerular Filt Rate > 60.0 mL/min (>60); Glucose 96 mg/dL (80-110); HEMOLYSIS < 15 (0-50); Magnesium 1.7 mg/dL (1.6-2.3); Sodium 135 mmol/L (137-145)
[2021-02-15 05:43] LABS: Potassium 4.2 mmol/L (3.4-5.1)
[2021-02-15 07:00] VITALS: O2SAT 97
[2021-02-15 07:35] VITALS: BP 147/69; PULSE 67; RESP 18; TEMP 37.7; O2SAT 97
[2021-02-15 07:45] VITALS: BP 147/69; PULSE 67; RESP 16; TEMP 37.7; O2SAT 97
--- NOTE | 2021-02-15 11:38 | PC.NURSE ---
Addendum entered by Alycia Alejandre R.N. 02/15/21 14:43: Reviewed DC paperwork with patient, signed copy. Tele off and iv removed. Assisted to WC , to private vehicle. Original Note: Pt reports improved s/sx of nausea, no further zofran needed this shift. Eating well, Tele NSR/SB. SBA to BR. BP running high, Dr Carol machado, dc orders obtained. With changes to lisinopril and stopping HCTZ at home. Confirmed Pharmacy, [facility] [place]. Call light in reach and IV removed in preparation for d/c.
[2021-02-15 12:00] VITALS: BP 146/67; PULSE 68; RESP 16; O2SAT 97
--- NOTE | 2021-02-15 13:15 | P.PN_ITS ---
Subjective Subjective Interval history: Patient reports feeling much better this morning. She states that the IV Zofran here has worked for her, and request home PO Zofran. She denies any more episodes of loose stools overnight. Exam Vital Signs (past 8 hours): - 02/15/21 07:00 02/15/21 07:35 02/15/21 07:45 Temperature 99.9 F H 99.9 F H Pulse Rate 67 67 Respiratory Rate 18 16 Blood Pressure 147/69 H 147/69 H Pulse Oximetry 97 97 97 02/15/21 12:00 Temperature Pulse Rate 68 Respiratory Rate 16 Blood Pressure 146/67 H Pulse Oximetry 97 Oxygen Delivery Method Room Air Oxygen Flow Rate 0 Narrative Exam Narrative: Const Other: Patient sitting up in chair comfortably upon my entering the room, in no apparent acute distress. Eyes Other: No scleral icterus appreciated. Neck Other: No carotid bruits appreciated. Resp Other: Clear to auscultation bilaterally. Cardio Other: Regular rate and rhythm. S1 and S2 heart sounds normal, with no extra heart sounds or murmurs appreciated. No peripheral edema. GI Other: Soft, non-distended, non-tender. Bowel sounds present. Extrem Other: Palpable radial and dorsalis pedis pulses bilaterally. Objective Labs Result Diagrams: 02/14/21 12:18 02/15/21 05:20 Labs: Laboratory Results - last 24 hr 02/14/21 02/15/21 12:18 05:20 Sodium 135 L Potassium 4.2 D Chloride 103 Carbon Dioxide 29 BUN 5 L Creatinine 0.64 Estimated GFR > 60.0 BUN/Creatinine Ratio 7.8 Glucose 96 Calcium 8.3 L Magnesium 1.7 SARS-CoV-2 (PCR) Positive [facility] Medical History Anxiety Back pain Bowel obstruction Chronic obstructive pulmonary disease (05/20/16) Colon obstruction (1974) Essential hypertension (04/01/16) Eustachian tube dysfunction Numbness and tingling Osteopenia Pneumonia (~06/2017) Pure hypercholesterolemia (04/01/16) Restrictive lung disease (04/05/17) Rheumatoid arthritis (04/11/16) Sciatica Surgical History History of bilateral carpal tunnel release Hx of appendectomy (1974) Hx of arthroscopy of right knee Hx of cholecystectomy (04/11/18) Hx of dilation and curettage Hx of tonsillectomy S/P lumbar fusion (06/19/18) Status post bilateral cataract extraction Status post delivery (1968) Family History Mother Hypertension Father No problems noted. Sister Cancer Social History household members: none Smoking Status: Never smoker second hand exposure: No alcohol intake: current substance use type: does not use Assessment & Plan Assessment & Plan narrative: Assessment 1. Hypokalemia, likely due to GI losses, resolved 2. Nausea/vomiting/diarrhea, likely due to COVID-19 infection 3. COVID-19 infection, non-severe 4. Hypertension Plan: 1. Will stop home HCTZ, increase lisinopril to 40 mg daily to help with K and BP, and PO Zofran for n/v control 2. PO Zofran will be prescribed for home 3. Patient endorses testing positive on . Endorses receiving monoclonal antibody infusion outpatient, does not recall which agent it was. There does not appear to be a respiratory component to her COVID-19 infection. 4. As per problem 1 VTE prophylaxis: Lovenox 40 mg once daily Disposition: Discharge today Time Spent With Patient Critical Care time: I spent a total of [] minutes of critical care time on this patient's care today; this time is exclusive of procedural time. Quality VTE Deep Vein Thrombosis/Pulmonary Embolism Present on Admission: No
--- NOTE | 2021-02-15 13:39 | PM.DS.1 ---
History of Present Illness History of Present Illness Chief complaint: DRY HEAVING, VERY WEAK, SO SICK Narrative: 81yo female with a hx of hypertension that presents with n/v and loose stools. Patient states that this started 10 days ago, on Thanksgiving. She was diagnosed with COVID-19 at that time. She believes she likely acquired it from family members who were visiting. The patient lives alone, [place], [place] she [place] with her extended family. She denies any respiratory complaints in that time, but endorses primarily GI complaints. She endorses non-bloody, non-bilious emesis, approximately 3-4 times per day, that started 4 days ago. However, in the last 1-2 days, she endorses only dry heaves. She also endorses 3-4 episodes of loose stools since that time, non-bloody, non-watery. The patient denies cough, SOB, CP, palpitations, fever/chills, weight loss. She endorses taking lisinopril and HCTZ at home, although she's missed a few doses due to the n/v. She endorses a remote tobacco smoking history, denies EtOH use or illicit drug use. She endorses undergoing a left knee replacement a few years ago. She denies any relevant family hx. She denies having any known drug allergies. Discharge Providers Provider Date of admission: 02/14/21 18:14 Discharge Date: 02/15/21 Primary care physician: MONY Sanabria Discharge provider: Braxton Medina MD Summary Hospital Course Discharge Diagnosis: 1. Hypokalemia, likely due to GI losses, resolved 2. Nausea/vomiting/diarrhea, likely due to COVID-19 infection 3. COVID-19 infection, non-severe 4. Hypertension Hospital Course: 81yo female that presented with hypokalemia secondary to GI losses from COVID-19 infection. There is not a respiratory component to her COVID-19. However, it's caused her n/v/d, which improved with IV Zofran inpatient. Potassium corrected quickly inpatient with IV potassium replacement. I discussed with patient that we will discontinue home HCTZ so as to not worsen hypokalemia, will increase home lisinopril to 40 mg daily to help with both BP control and low potassium, and will prescribe PO Zofran 4 mg tid PRN for nausea. Patient is agreeable to said plan, with plans to follow-up with her healthcare provider in the next 1-2 weeks. Exam Vital Signs (past 8 hours): - 02/15/21 07:00 02/15/21 07:35 02/15/21 07:45 Temperature 99.9 F H 99.9 F H Pulse Rate 67 67 Respiratory Rate 18 16 Blood Pressure 147/69 H 147/69 H Pulse Oximetry 97 97 97 02/15/21 12:00 Temperature Pulse Rate 68 Respiratory Rate 16 Blood Pressure 146/67 H Pulse Oximetry 97 Oxygen Delivery Method Room Air Oxygen Flow Rate 0 Narrative Exam Narrative: Const Other: Patient sitting up in chair comfortably upon my entering the room, in no apparent acute distress. Eyes Other: No scleral icterus appreciated. Neck Other: No carotid bruits appreciated. Resp Other: Clear to auscultation bilaterally. Cardio Other: Regular rate and rhythm. S1 and S2 heart sounds normal, with no extra heart sounds or murmurs appreciated. No peripheral edema. GI Other: Soft, non-distended, non-tender. Bowel sounds present. Extrem Other: Palpable radial and dorsalis pedis pulses bilaterally. Objective Labs Result Diagrams: 02/14/21 12:18 02/15/21 05:20 Labs: Laboratory Results - last 24 hr 02/14/21 02/15/21 12:18 05:20 Sodium 135 L Potassium 4.2 D Chloride 103 Carbon Dioxide 29 BUN 5 L Creatinine 0.64 Estimated GFR > 60.0 BUN/Creatinine Ratio 7.8 Glucose 96 Calcium 8.3 L Magnesium 1.7 SARS-CoV-2 (PCR) Positive H COUNT INCLUDES THE [facility] Medical History Anxiety Back pain Bowel obstruction Chronic obstructive pulmonary disease (05/20/16) Colon obstruction (1974) Essential hypertension (04/01/16) Eustachian tube dysfunction Numbness and tingling Osteopenia Pneumonia (~06/2017) Pure hypercholesterolemia (04/01/16) Restrictive lung disease (04/05/17) Rheumatoid arthritis (04/11/16) Sciatica Surgical History History of bilateral carpal tunnel release Hx of appendectomy (1974) Hx of arthroscopy of right knee Hx of cholecystectomy (04/11/18) Hx of dilation and curettage Hx of tonsillectomy S/P lumbar fusion (06/19/18) Status post bilateral cataract extraction Status post delivery (1968) Family History Mother Hypertension Father No problems noted. Sister Cancer Social History household members: none Smoking Status: Never smoker second hand exposure: No alcohol intake: current substance use type: does not use Discharge Assessment & Plan Assessment and Plan Assessment: Assessment 1. Hypokalemia, likely due to GI losses, resolved 2. Nausea/vomiting/diarrhea, likely due to COVID-19 infection 3. COVID-19 infection, non-severe 4. Hypertension Plan: 1. Will stop home HCTZ, increase lisinopril to 40 mg daily to help with K and BP, and PO Zofran for n/v control 2. PO Zofran will be prescribed for home 3. Patient endorses testing positive on . Endorses receiving monoclonal antibody infusion outpatient, does not recall which agent it was. There does not appear to be a respiratory component to her COVID-19 infection. 4. As per problem 1 Discharge Plan Discharge Plan Patient Disposition: Home Discharge orders & Medications Prescriptions: New ondansetron 4 mg tablet,disintegrating 4 mg PO Q8H PRN (Reason: nausea and vomiting) Qty: 30 0RF Continued cholecalciferol (vitamin D3) [Vitamin D3] 5,000 unit Tablet 5,000 unit PO DAILY Qty: 0 0RF ascorbic acid (vitamin C) [Vitamin C] 500 mg Tablet 500 mg PO DAILY Qty: 0 0RF coenzyme Q10 [CoQ-10] 100 mg Capsule 100 mg PO DAILY Qty: 0 0RF bee pollen 550 mg Capsule 1,000 mg PO DIRECTED Qty: 0 0RF fluvoxamine 25 mg Tablet 25 mg PO BID 0RF aspirin 81 mg Tablet 81 mg PO DAILY 0RF albuterol sulfate [Ventolin HFA] 90 MCG/PUFF HFA aerosol inhaler 1 puff INH Q4HP PRN (Reason: Shortness Of Breath) 0RF Changed lisinopril 20 mg Tablet 40 mg PO DAILY 90 Days Qty: 0 0RF Discontinued hydrochlorothiazide 25 mg Tablet 25 mg PO DAILY 0RF Follow up/Referrals: Zora Ballesteros ARNP [Primary Care Provider] - Visit Report/Discharge Packet Instructions: Essential Hypertension, DI for Hypokalemia, DI for Nausea -- Adult Discharge Data Primary Care Provider: Zora Ballesteros Attending Provider: Braxton Medina VTE Deep Vein Thrombosis/Pulmonary Embolism Present on Admission: No
== END 2021-02-15 15:04 | disposition home or self-care (01) ==
LOC: ED 15:13 → AC 18:17
PROVIDERS: Admitting Provider Student in an Organized Health Care Education/Training Program; Emergency Provider Emergency Medicine; Family Provider Family Medicine; PCP Nurse Practitioner Family; Referring Provider Emergency Medicine; Visit Provider Student in an Organized Health Care Education/Training Program
DX: U07.1 COVID-19 (principal); R11.2 Nausea with vomiting, unspecified; R19.7 Diarrhea, unspecified; E87.6 Hypokalemia; I10 Essential (primary) hypertension
CPT/HCPCS: 36415; 71045; 80048; 80053; 82962; 83605; 83690; 83735; 83880; 84484; 85025; 85379; 87040; 87635; 93005; 93010; 96361; 96365; 96366; 96375; 99284; C9803; G0378; J2060; J2405

== ENCOUNTER → 2024-04-23 16:17 | Outpatient (CLI) | payer MEDICARE, OTHER, SELFPAY ==
[2021-02-14 18:21] VITALS: BMI 30.9
[2024-04-23 17:00] LABS: Add Manual Diff / Slide Review NO; Basophils Absolute Auto 100 /uL (0-100); Basophils Percent Auto 0.9 % (0-2); Eosinophils Absolute Auto 200 /uL (0-450); Eosinophils Percent Auto 3.1 % (2-4); Hematocrit 39.3 % (36-46); Hemoglobin 13.2 g/dL (12.0-16.0); Lymphocytes Absolute Auto 2700 /uL (1100-4500); Lymphocytes Percent Auto 39.8 % (25-40); Mean Corpuscular HGB Conc 33.6 % (30-36); Mean Corpuscular Hemoglobin 31.5 PG (26-34); Mean Corpuscular Volume 93.7 fL (80-100); Monocytes Absolute Auto 600 /uL (0-900); Neutrophils Absolute Auto 3200 /uL (1500-7000); Neutrophils Percent Auto 47.2 % (50-75); Platelet Count 331 X10^3/uL (150-400); Red Cell Distribution Width 16.5 % (11.6-14.8); White Blood Cell Count 6.8 X10^3/uL (4.5-11.0)
[2024-04-25 17:40] LABS: Alder IgE <0.10 kU/L (Class 0); Alternaria alternata IgE <0.10 kU/L (Class 0); Aspergillus fumigatus IgE <0.10 kU/L (Class 0); Box Elder IgE <0.10 kU/L (Class 0); Cat Dander IgE <0.10 kU/L (Class 0); Cladosporium herbarum IgE <0.10 kU/L (Class 0); Cockroach IgE <0.10 kU/L (Class 0); Cottonwood IgE <0.10 kU/L (Class 0); D farinae IgE <0.10 kU/L (Class 0); D pteronyssinus IgE <0.10 kU/L (Class 0); Dog Dander IgE <0.10 kU/L (Class 0); Elm Tree IgE <0.10 kU/L (Class 0); Immunoglobulin E 6 IU/mL (6-495); Mountain Cedar IgE <0.10 kU/L (Class 0); Mouse Urine Proteins IgE <0.10 kU/L (Class 0); Nettle IgE <0.10 kU/L (Class 0); Oak Tree IgE <0.10 kU/L (Class 0); Penicillium chrysogen IgE <0.10 kU/L (Class 0); Pigweed, Common IgE <0.10 kU/L (Class 0); Ragweed, Short <0.10 kU/L (Class 0); Sheep Sorrel IgE <0.10 kU/L (Class 0); Silver Birch IgE <0.10 kU/L (Class 0); Timothy Grass IgE <0.10 kU/L (Class 0); Walnut Allery IgE < 0.10 kU/L (Class 0); White ash IgE <0.10 kU/L (Class 0)
== END ==
PROVIDERS: Family Provider Family Medicine; PCP Nurse Practitioner Family; Referring Provider Student in an Organized Health Care Education/Training Program; Visit Provider Student in an Organized Health Care Education/Training Program
DX: J45.40 Moderate persistent asthma, uncomplicated (principal)
CPT/HCPCS: 36415; 82785; 85025; 86003; 99214

== ENCOUNTER → 2024-05-09 12:46 | Outpatient (CLI) | payer MEDICARE, OTHER, SELFPAY ==
[2021-02-14 18:21] VITALS: BMI 30.9
--- NOTE | 2024-05-09 12:52 | DI.RAD.S_ITS ---
PROCEDURE: XR WRIST LT MIN 3V INDICATIONS: WRIST PAIN TECHNIQUE: 4 views of the wrist were acquired. COMPARISON: None. FINDINGS: Bones: Minimally displaced radial styloid fracture with intra-articular extension. There is appearance of lucency within the central portion of the fracture. Soft tissues: No suspicious soft tissue calcifications. IMPRESSION: Minimally displaced intra-articular radial styloid fracture as above. Central lucency is present. While this could be related to fracture, lucent lesion with superimposed pathologic fracture cannot be definitively excluded. As clinically indicated, further evaluation with CT or MRI may be obtained. Dictated by: Alpa Long M.D. on 05/09/2024 at 17:02 Approved by: Alpa Long M.D. on 05/09/2024 at 17:03
== END ==
PROVIDERS: Family Provider Family Medicine; PCP Nurse Practitioner Family; Referring Provider Student in an Organized Health Care Education/Training Program; Visit Provider Student in an Organized Health Care Education/Training Program
DX: J45.909 Unspecified asthma, uncomplicated (principal); M25.232 Flail joint, left wrist; W19.XXXA Unspecified fall, initial encounter; Z86.16 Personal history of COVID-19; R94.2 Abnormal results of pulmonary function studies; M25.532 Pain in left wrist; S52.512A Displaced fracture of left radial styloid process, initial encounter for closed fracture
CPT/HCPCS: 73110; 94060; 94726; 94729